=== PATIENT | male | born 1960 | race Caucasian/White ===

== ENCOUNTER 2017-01-08 22:09 | Inpatient (IN) | payer OTHER ==
[~2017-01-08] VITALS: Ht 175.3 cm; Wt 66.7 kg
[2017-01-08 22:33] VITALS: BP 103/71; PULSE 84; RESP 17; O2SAT 95
--- NOTE | 2017-01-08 23:22 | ED.REPORT ---
HPI-General Illness Date of Service Jan 08, 2017 ED Provider: Dr. Humble Womack The patient is a 56 year old male w/ a hx of hepatitis C and heroine use who presents to the ED c/o an abscess to his right upper thigh for the past 3 weeks. He denies fever. He has another abscess on his left triceps. Patient last used this morning. He expresses interest in getting clean. Nursing Notes Stated Complaint: ABSCESS ON RIGHT LEG Chief Complaint: Skin Rash/Abscess Nursing Notes Reviewed: Yes Allergies: Coded Allergies: Penicillins (Verified Allergy, Mild, RASH, 01/09/17) Sulfa (Sulfonamide Antibiotics) (Verified Allergy, Unknown, 01/09/17) No Active Prescriptions or Reported Meds General Time Seen by MD: 23:22 Chief Complaint Other (abscess) Hx Obtained From: Patient Arrived By: Walk-in Sudden in Onset?: Yes Onset Occurred: More than a week ago... (3 weeks) Symptom Duration: Since onset Location: : Thigh right Quality: Painful Severity: Current: Mild Recent Healthcare: No recent doctor visit, No recent hospitalization Similar Sx Previous: No Past Medical History Past Medical History Hepatitis C Heroin abuse Past Surgical History ACL repair of left knee Spine fusion T6-T12 Reports: Appendectomy Smoking History Current Every Day Smoker Social History Currently injecting 03/04/2015 Alcohol Use: Denies alcohol use Drug Use: Other Other Social History: Occupation single, has a home Ambulatory Status Independent Review of Systems Full Review of Systems Constitutional: Denies: Chills, Fever GI: Denies: Nausea, Vomiting Skin: Reports Swelling (abscess to right upper thigh) Complete sys rev & neg: except as marked. Physical Exam Vital Signs Vital Signs Date Time Temp Pulse Resp B/P Pulse Ox O2 Delivery O2 Flow Rate FiO2 01/09/17 02:58 77 16 102/60 96 Room Air 01/08/17 22:33 37.1 84 17 103/71 95 Room Air Initial VS: Reviewed General/Constitutional: Awake, Alert, No acute distress, Cooperative Head / Eyes: Atraumatic, Normocephalic, PERRL, EOMI Respiratory / Chest: Atraumatic, Breath sounds NL, Breath sounds = bilat, No respiratory distress Cardiovascular: Heart rate NL, Regular rhythm, Heart sounds NL, No gallop, No murmurs, No rubs Upper Extremities Left Shoulder: Positive: Swelling present... abscess over the left triceps Wrist / Hand: Atraumatic, Full range of motion, No deformity Right Thigh: Positive: Swelling present... large 15 by 10 area of fluctuance over interior lateral right thigh warm and tender non pointing inguinal adenopathy on right distal pulses intact some scarring anterior left thigh that is firm Ankle / Foot: Atraumatic, Full range of motion, No deformity Neurologic: Oriented X3, Speech NL, No motor deficits Interpretation & Diagnostics Interpretation & Diagnostics: CT femur 6.7x3.5x3cm fluid collection R Quadriceps muscle Lab Results Interpretation Result Diagram: 01/09/17 0133 01/09/17 0133 Test 01/09/17 01:33 01/09/17 01:41 White Blood Count 18.9th/mm3 (3.8-10.1) Red Blood Count 4.88mil/mm3 (4.40-5.80) Hemoglobin 12.6g/dL (13.8-17.2) Hematocrit 39.4% (41.0-50.0) Mean Corpuscular Volume 80.7fL (81-100) Mean Corpuscular Hemoglobin 25.8pg (27.0-35.0) Mean Corpuscular Hemoglobin Concent 32.0% (32.0-37.0) Red Cell Distribution Width 14.8% (12.3-15.4) Platelet Count 315bil/L (150-400) Neutrophils (%) (Auto) 81.1% (40-74) Lymphocytes (%) (Auto) 10.2% (14-46) Monocytes (%) (Auto) 7.6% (4-12) Eosinophils (%) (Auto) 0.7% (0-5) Basophils (%) (Auto) 0.2% (0-3) Sodium Level 130mEq/L (134-144) Potassium Level 4.4mEq/L (3.5-5.2) Chloride Level 92mEq/L (97-108) Carbon Dioxide Level 25mmol/L (18-29) Blood Urea Nitrogen 11mg/dL (6-24) Creatinine 0.66mg/dL (0.76-1.27) Estimat Glomerular Filtration Rate 132mL/min (>59) Glucose Level 97mg/dL (60-99) Calcium Level 8.7mg/dL (8.5-10.1) Total Bilirubin 0.6mg/dL (0.0-1.2) Aspartate Amino Transf (AST/SGOT) 102U/L (0-50) Alanine Aminotransferase (ALT/SGPT) 70U/L (0-44) Alkaline Phosphatase 104U/L (25-150) Total Protein 7.7g/dL (6.4-8.4) Albumin 3.5g/dL (3.4-5.0) Hold Cid Top Tube Received (Received) Procedures Procedure Notes: Ultrasound-guided intravenous line: I was asked to place an ultrasound-guided intravenous line into this IV drug abusing patient. A suitable antecubital vein was identified in the left before meals fossa, his dominant arm. This was entered in a single pass under direct visualization with a 20-gauge 1-1/4 inch IV. Flow and flush was obtained and IV was secured. He is returned to the care of his care team. Re-Eval/Medical Decision Med Decision/Clinical Course 56-year-old active injection drug user with a large abscess to his right thigh following intramuscular injection of heroin. There is a smaller abscess in the left triceps. He has a leukocytosis but appears nontoxic. Blood cultures have been obtained. Started on vancomycin and will consult general surgery and medicine Time of Eval: 01:01 Re-Evaluation/Progress Note: Difficulty getting an IV on the patient. Consultation #1: Referral / Consult Name: Jayy Rose MD Consulted With: Surgeon Drop Shipment Clerk: Will see patient Consultation #2: Referral / Consult Name: Bibi Banerjee DO Consulted With: Hospitalist Drop Shipment Clerk: Accepts admit Counseled Regarding: Diagnosis, Lab results, Need for admission Discharge & Departure Primary Impression: Abscess of right thigh Disposition: ADMITTED TO HOSPITAL Discharge Condition All VS Reviewed: Yes Condition: Stable Referrals: Gavin Sapp MD (PCP) Scribe Attestation Portion of this note were transcribed by Kristen Cohen. I, Dr. Womack, personally performed the history, physical exam, and medical decision-making: I reviewed and confirmed the accuracy for the information in the transcribed note. Signed by: janie Davis, 01/09/17 0200 copies to: Gavin Sapp MD, Donald L MD Jan 08, 2017 23:22 Kristen Cohen Jan 08, 2017 23:36 Eric Valentino MD Jan 09, 2017 01:31
[2017-01-09] VITALS (16 sets, daily range): BP systolic 99–153; BP diastolic 59–87; PULSE 69–81; RESP 13–28; O2SAT 94–99
[2017-01-09] MEDS ORDERED: HYDROmorphone 1 mg/mL Inj IM ONE (01:00)
[2017-01-09 01:45] LABS: BASOPHILS % (AUTO) 0.2 % (0-3); EOSINOPHILS % (AUTO) 0.7 % (0-5); MONOCYTES % (AUTO) 7.6 % (4-12); Mean Corpuscular Hemoglobin 25.8 pg (27.0-35.0); Mean Corpuscular Volume 80.7 fL (81-100); NEUTROPHILS % (AUTO) 81.1 % (40-74); Platelet Count 315 bil/L (150-400)
[2017-01-09] MEDS ORDERED: Vancomycin Inj 1,000 MG in IV Premix 1 EACH IV ONE (02:15)
[2017-01-09] MEDS: HYDROmorphone 1 mg/mL Inj IVPUSH PRN ×6 (02:58→20:18)
[2017-01-09] MEDS ORDERED: Lactated Ringer's 1,000 ML IV SCH ×2 (04:15→22:14)
[2017-01-09] MEDS ORDERED: Ondansetron 2 mg/mL 2 mL Inj IVPUSH PRN ×3 (04:15→22:15)
--- NOTE | 2017-01-09 04:59 | PCM.HPMED ---
Subjective Date of Service Jan 09, 2017 Primary Provider: Admitting Physician: Bibi Banerjee DO Primary Care Physician: Gavin Sapp MD Attending Physician: Bibi Banerjee DO Admit Status: From the Emergency Department Chief Complaint: leg pain History of Present Illness: 56yoM with past medical history of IVDU and hepatitis C admitted for surgical consultation and I&D of thigh abscess. 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 He has been unable to ambulate over the past two days due to pain. He denies fevers, chill, nausea and vomiting.\ CT completed in the ED with findings of fluid collection 6.7x3.5x3cm. Surgery was consulted and will see patient. Review of Systems: complete review of systems obtained. positive as per hpi otherwise negative Allergies Coded Allergies: Penicillins (Verified Allergy, Mild, RASH, 01/09/17) Sulfa (Sulfonamide Antibiotics) (Verified Allergy, Unknown, 01/09/17) Home Medications none PMH IVDU, heroin abscesses hepatitis C Surgical History ACL repair of left knee Spine fusion T6-T12 Appendectomy Social History Hx Alcohol Use: No Hx Substance Use: Yes (heroin) Hx Tobacco Use: No Smoking Status: Current Every Day Smoker Exam Vital Signs Vital Sign - Last Date Time Temp Pulse Resp B/P Pulse Ox O2 Delivery O2 Flow Rate FiO2 01/09/17 04:48 36.7 69 18 102/63 95 Room Air Exam General: alert and oriented, in no acute distress Eyes: PERRLA, Scleral Anicteric Mouth: Mouth Normal, Mucous Membranes Moist/[place] Neck: Supple, no Thyromegaly, trachea central. Chest & Lungs: CTA bilater, no rhonchi, wheezes or rales Cardiovascular: no MRG, Regular Rate/Rhythm Pulses: Radial (present and equal), Dorsalis Pedi (present and equal) Abdomen: Soft, Non-tender, Non-distended, Normoactive bowel tones. Musculoskeletal: Unremarkable. Normal range of motion, no swollen or erythematous joints Extremities: 0-1+ pitting edema of right lower extremity with right thigh abscess, no drainage or erythema no cyanosis, no clubbing. Skin: No rashes. Warm and dry Neurological: Grossly neurologically intact moving all extremities Lymphatic: Lymph nodes Cervical and Axillary not palpable. Psych: normal affect Lab and Diagnostics Result Diagram: 01/09/1713201/09/17132 X-Rays, CTs and MRIs Interpretation & Diagnostics: CT femur 6.7x3.5x3cm fluid collection R Quadriceps muscle Assessment & Plan 56yoM with past medical history of IVDU and hepatitis C admitted for surgical consultation and I&D of thigh abscess. Lower extremity abscess, acute, POA -secondary to IVDU -surgery consulted prior to admission, recs appreciated -NPO -mIVF -continue vancomycin pharmacy to dose -CT results reviewed and are as per documented above -pain management with IV hydromorphone until able to take PO Leukocytosis, acute, POA -secondary to abscess -does not meet Sepsis criteria -treatment as above Hyponatremia, acute, unknown chronicity -mild -likely hypovolemic given presentation -continue to monitor Opioid dependence, chronic, POA -monitor for withdrawal symptoms -clonidine PRN, lorazepam PRN, may consider methadone Tobacco dependence, chronic, POA -discussed smoking cessation -nicotine patch available upon request Elevated transaminase level, unknown chronicity, POA -likely secondary to hep C -continue to monitor -avoid hepatotoxic medications Pain Evaluation: Adequate Pain Control GI Prophylaxis: Not indicated VTE Prophylaxis: Sub-Q Heparin (Unfractionated) Resuscitation Status: CPR: Attempt Resuscitation Bibi Banerjee DO Jan 09, 2017 04:59
[2017-01-09] MEDS: Vancomycin Dose per Pharmacist XX SCH ×2 (05:05→08:30)
[2017-01-09] MEDS: Lactated Ringer's 1,000 ML IV SCH ×4 (05:09→21:47)
[2017-01-09] MEDS ORDERED: cloNIDine 0.1 mg Tablet PO PRN (05:10)
[2017-01-09] MEDS ORDERED: Polyethylene Glycol (PEG) 17 Gm Powder PO PRN (05:10)
[2017-01-09] MEDS ORDERED: Alum-Mag Hydrox-Simeth 30 mL Suspension PO PRN (05:10)
--- NOTE | 2017-01-09 05:54 | NUR ---
ADMITTED; to room 1029 at approx. 0430 via gurney with c/o painful upper reddened swollen right thigh. Dilaudid effective for pain. NPO. Belongings locked in closet. Sharps container removed. Pt is a current heroin user. Last used heroin yesterday a.m.
--- NOTE | 2017-01-09 06:43 | PCM.CONPHA ---
Subjective Date of Service: Jan 09, 2017 Requesting Provider: Bibi Banerjee DO leg pain History of Present Illness abscess on right thigh, secondary to IVDU Reason for Pharmacy Consult: Vancomycin Dosing Objective Assessment/Plan Assessment/Plan A/ - 56 y/o male patient admitted in for right thigh abscess secondary to heroin injection. Vancomycin ordered for empirical coverage - Afebrile, WBC: 18.9, blood cultures (x2) pending - I&D after surgical consult in am - In ED, clindamycin iv (PCN allergy) and Vancomycin 1G were given and to be continued - Wt: 66.7kg, ht: 175 cm, SCr: 0.66 mg/dL, estimated clearance ~ 117 ml/min, Vd ~47L, t1/2~7hrs, IVF@100ml/hr P/ - Give Vancomycin 1G iv q8hr. Trough level ordered before 4th dose @2130 . Pharmacy will follow and make necessary adjustment according to patient's clinical response and lab result Thank you for consulting clinical pharmacy in the care of this patient Ho Woody Jan 09, 2017 06:43
[2017-01-09] MEDS ORDERED: Ketamine 10 mg/mL 20 mL Inj ONE (06:47)
[2017-01-09] MEDS ORDERED: HYDROmorphone 2 mg/mL Inj ONE (06:47)
[2017-01-09] MEDS ORDERED: fentaNYL-PF 50 mCg/mL 2 mL Inj ONE (06:47)
[2017-01-09] MEDS ORDERED: Propofol 10,000 mCg/mL 20 mL Inj ONE (06:47)
[2017-01-09] MEDS ORDERED: Ondansetron 2 mg/mL 2 mL Inj ONE (06:47)
[2017-01-09] MEDS: Vancomycin Inj 1,000 MG in IV Premix 1 EACH IV SCH ×2 (08:26→16:18)
[2017-01-09] MEDS: Clindamycin Inj 600 MG in IV Premix 1 EACH IV SCH ×2 (08:27→18:03)
[2017-01-09] MEDS: Heparin 5,000 Unit/mL Inj SUBQ SCH ×2 (08:28→16:17)
--- NOTE | 2017-01-09 08:56 | DRSVH ---
PROCEDURE: CT FEMUR RIGHT WITH CONTRAST (47820) INDICATIONS: large abscess TECHNIQUE: After the administration of intravenous contrast, 3 mm axial sections acquired of the right femur, wi th coronal and sagittal reformats. For radiation dose reduction, the following was used: automated exposure control, adjustment of mA and/or kV according to patient size. COMPARISON: None. FINDINGS: Image quality: Excellent. Bones: No bony erosions or periosteal reaction demonstrated within the right femur. No fracture or s ubluxation. Soft tissues: There is a multilobulated thick walled peripherally enhancing collection within the mi d vastus lateralis muscle measuring approximately 4.2 x 3.5 x 9.9 cm consistent with an abscess. The re is subcutaneous fat stranding most prominent laterally in the thigh with mild hypoattenuation of t he vastus lateralis muscle and a small amount of fluid tracking deep to its superficial fascia consis tent with cellulitis and myositis as well as likely fasciitis. IMPRESSION: 1. Multiloculated intramuscular abscess demonstrated within the vastus lateralis. 2. Findings consistent with cellulitis of the lateral thigh as well as myositis of the vastus latera lis with edema tracking deep to its superficial fascia suggesting fasciitis. Dictated by: Kevin Whitney M.D. on 01/09/2017 at 8:43 Approved by: Kevin Whitney M.D. on 01/09/2017 at 8:48
[2017-01-09 12:09] LABS: APPEARANCE,URINE CLEAR (CLEAR,HAZY); COLOR,URINE YELLOW (YELLOW); OCCULT BLOOD,URINE NEGATIVE (NEGATIVE)
--- NOTE | 2017-01-09 14:45 | CONS ---
[address] [address] CONSULTATION REPORT PATIENT: HODAN GALAN : 1960 MR#: [id number] ADMIT: 01/09/2017 JOB ID: [id number] DATE OF SERVICE: CHIEF COMPLAINT/IDENTIFICATION: Asked to see this 56-year-old man who presents with right upper thigh abscess. He was admitted to the Medicine Service last night for planned consultation this morning and incision and drainage. PAST MEDICAL HISTORY: Hepatitis C, heroin use. Previous abscesses. Spine fusion, appendectomy. MEDICATIONS: Per med list. ALLERGIES: 1. PENICILLIN. 2. SULFA. SOCIAL HISTORY: Positive for tobacco, negative daily alcohol use. FAMILY HISTORY/REVIEW OF SYSTEMS: Per admission history and physical. PHYSICAL EXAMINATION: The patient is awake and alert. Afebrile. Blood pressure is recorded at 99/59, pulse is at 72. Directed examination shows an area of tender fluctuance on his right thigh consistent with a deep tissue abscess. He has a similar lesion on his left triceps. He also notes that his left thigh has a bump on it, but this is nontender and nonfluctuant. LABS: His white count was 18.9. His hematocrit was 39. Chemistries slightly abnormal, but fairly unremarkable. IMAGING: He had a lower extremity CT scan that demonstrates a multi-loculated, 4.2 x 3.5 x 9.9 cm intramuscular abscess in the mid vastus lateralis muscle. IMPRESSION/PLAN: Right thigh abscess. Possible left triceps abscess. I have recommended that we go to the operating room and drain the thigh abscess. While we are there, we will try to aspirate this lesion on his triceps, and if this is an abscess, will drain it as well. He would like to proceed today. He is n.p.o.
--- NOTE | 2017-01-09 16:09 | NUR ---
Social Work- Screening Data: EMR reviewed. Pt is a 56 year old male admitted 01/09/17 for right thigh abscess per H&P. Pt has a history of IV heroin use, last use day prior to admission. Pt's payor is [employer]. Pt's PCP is Gavin Sapp MD. Per chart review, pt resides in [place] where he is independent at baseline. Pt has been SBA in room. Surgery is following pt. Pt to OR today to receive I & D. SW acknowledges MD's order for CD assessment. In multi-disciplinary rounds MD requested HOSPITALIST PHYSICIAN follow up with pt regarding CD tomorrow after surgery when pt is appropriate. SW to follow up with pt to discuss discharge planning, CDP, and complete CD assessment. Pt anticipated to discharge home when medically ready, SW will continue to follow. Assessment: Pt who has a history of IVDU Plan: Pt to OR today for I & D. SW to follow up with pt tomorrow to discuss discharge planning, CDP, and complete CD assessment. Pt anticipated to discharge home when medically ready, SW will continue to follow. LUANNE Eric
--- NOTE | 2017-01-09 18:34 | NUR ---
Pain- Patient complaining of right thigh pain and burning. Thigh is red and inflamed. Dilaudid 1mg IV given per order, but does not totally take away all the discomfort. Patient has been NPO for surgery.
[2017-01-09] MEDS ORDERED: Vancomycin Serum Trough XX ONE (21:30)
[2017-01-09] MEDS ORDERED: Lactated Ringer's 500 ML IV PRN (22:14)
[2017-01-09] MEDS ORDERED: fentaNYL-PF 50 mCg/mL 2 mL Inj IVPUSH PRN (22:15)
[2017-01-09] MEDS ORDERED: MetoCLOpramide 5 mg/mL 2 mL Inj IVPUSH PRN (22:15)
[2017-01-09] MEDS ORDERED: Phenylephrine 10,000 mCg/mL Inj IVPUSH PRN (22:15)
[2017-01-09] MEDS ORDERED: Dexamethasone 4 mg/mL Inj IVPUSH PRN (22:15)
[2017-01-09] MEDS ORDERED: EPHEDrine Sulfate 50 mg/mL Inj IVPUSH PRN (22:15)
[2017-01-09] MEDS ORDERED: HYDROmorphone 1 mg/mL Inj IVPUSH PRN (22:15)
--- NOTE | 2017-01-09 22:15 | PCM.HPANE ---
Patient Data Date of Service: Jan 09, 2017 (7810) Surgeon Admitting Provider:Bibi Banerjee DO Attending Provider:Bibi Banerjee DO Primary Care Physician:Gavin Sapp MD Other Provider:Rachel Mathis Anesthesia Reason for Visit R Thigh Abscess Ht/WT & BMI Body Mass Index 21.78 Allergies Coded Allergies: Penicillins (Verified Allergy, Mild, RASH, 01/09/17) Sulfa (Sulfonamide Antibiotics) (Verified Allergy, Unknown, 01/09/17) Past Anesthesia History Anesthesia History: Denies:: Anesthesia Reactions Diabetes History Hx Diabetes?: No MRSA MRSA: No Medications No Active Prescriptions or Reported Meds History History of ENT Problems?: No HEENT History: Denies:: Abnormal Airway Cataracts Difficult Intubation Dysphagia Glaucoma Hearing Problem Sinus Problem TMJ Denture Type: None Teeth Condition: Tooth Decay Missing Teeth Other HEENT Pertinent History: above per "recall" Hx of Heart Problems?: No Cardiovascular History: Denies:: Congestive Heart Failure Hypertension Other Cardiac History: above per "recall" Hx of Respiratory Problem?: Yes Respiratory History: Positive for:: Pneumonia Denies:: Tuberculosis Other Resp Pertinent History: above per "recall" Hx Neurologic Problems?: Yes Neurological History: Positive for:: Seizures (medication related) Other Neurological Pertinent: above per "recall" Hx of GI Problems?: Yes Other GI Pertinent History: h/o hepatitis C and heroin use Hx of Problems?: Yes Genitourinary History: Positive for:: Urinary Tract Infection Male Hx: Denies:: Prostate Problems Hx Musculoskeletal Problems?: Yes Musculoskeletal History: Positive for:: Back Injury (back surgeries x 3 chronic pain) Hx of Psycho/Social Problems?: Yes Psycho Social History: Positive for:: Anxiety Hx Depression Other Psych Pertinent History: above per "recall" heroin use Hx Surgeries?: Yes Hx Any Other Health Problems?: Yes Other History: Positive for:: Hospitalization Denies:: Cancer Thyroid Disease History Blood Transfusions: Positive for:: Accept Blood Products? Denies:: Blood Transfusions Hx Diabetes: No Other Pertinent History: above per "recall" Hx Alcohol Use: NoHx Substance Use: Yes (used heroin yesterday a.m.) Smoking Status: Current Every Day Smoker Have You Smoked inLast 12 mo: Yes Stop/Bang Treated for Sleep Apnea?: No Do You Have a CPAP Machine?: No S-Snoring: Do You Snore Loudly: No T-Tired: feel tired, fatigued: No O-Obsered: Observed not breath: No P-Blood Pressure: treated: No B- Body Mass Index > 35 kg/m2: No A- Age over 50: Yes N- Neck Large Circumference: No G- Gender Male: Yes IZA Total Score: 1 Risk Assessment Category Category 1A: Patient has history of documented sleep apnea, and HAS NOT received any narcotic, sedative or anesthesia administration during this stay. Category 1B: Patient has history of documented sleep apnea, and HAS received any narcotic , sedative or anesthesia administration during this stay Category 2: Patient has SUSPECTED Obstructive Sleep Apnea, and HAS received any narcotic , sedative or anesthesia administration during this stay. Category 3: Patient has SUSPECTED Obstructive Sleep Apnea and HAS NOT received narcotic, sedative or anesthesia administration during this stay. Category 4: Outpatient in Procedural Areas with known sleep apnea or who screen positive for High Risk via the STOP/BANG questionnaire. Exam Exam Vital Signs Vital Signs Date Time Temp Pulse Resp B/P Pulse Ox O2 Delivery O2 Flow Rate FiO2 01/09/17 15:30 37.1 79 18 103/62 99 Room Air General Appearance: Alert, Oriented X3, Cooperative, No Acute Distress HEENT/AIRWAY: MP 2 Lungs: Clear to Auscultation Heart: Exam Unremarkable Meds/Labs/Diagnostics Admission Meds Current Medications Hydromorphone HCl 2 mg 2 mg ONCE ONCE IM Last administered on 01/09/17 01:16 ; Start 01/09/17 at 01:00; Stop 01/09/17 at 01:01; Status DC Vancomycin/0.9 % Sod Chloride 1000 mg/Premix 200 ml @ 133.333 mls/hr ONCE ONCE IV Last administered on 01/09/17 03:09; Start 01/09/17 at 02:15; Stop 06/17 at 03:44; Status DC Lactated Ringer's (Lr) 1,000 ml @ 100 mls/hr Q10H IV Last administered on 01/09 05:11; Start 01/09/17 at 04:15; Stop 01/09/17 at 05:53; Status DC Heparin Sodium (Porcine) 5000 unit 5,000 unit Q8 SUBQ Last administered on 01/09 16:17; Start 01/09/17 at 08:30 Lactated Ringer's 1,000 ml @ 100 mls/hr Q10H IV Last administered on 20:59; Start 01/09/17 at 05:09 Clindamycin Phosphate/ Dextrose 600 mg/ Premix 50 ml @ 100 mls/hr Q8 IV Last administered on 01/09/17 18:03; Start 01/09/17 at 08:30 Vancomycin/0.9 % Sod Chloride/ Premix (Vancomycin Inj/ IV Premix) 200 ml @ 133.333 mls/hr Q8H IV Last administered on 01/09/17 16:18; Start 01/09/17 at 08:00 Labs Test 01/09/17 01:33 01/09/17 01:41 01/09/17 09:12 White Blood Count 18.9th/mm3 (3.8-10.1) Red Blood Count 4.88mil/mm3 (4.40-5.80) Hemoglobin 12.6g/dL (13.8-17.2) Hematocrit 39.4% (41.0-50.0) Mean Corpuscular Volume 80.7fL (81-100) Mean Corpuscular Hemoglobin 25.8pg (27.0-35.0) Mean Corpuscular Hemoglobin Concent 32.0% (32.0-37.0) Red Cell Distribution Width 14.8% (12.3-15.4) Platelet Count 315bil/L (150-400) Neutrophils (%) (Auto) 81.1% (40-74) Lymphocytes (%) (Auto) 10.2% (14-46) Monocytes (%) (Auto) 7.6% (4-12) Eosinophils (%) (Auto) 0.7% (0-5) Basophils (%) (Auto) 0.2% (0-3) Sodium Level 130mEq/L (134-144) Potassium Level 4.4mEq/L (3.5-5.2) Chloride Level 92mEq/L (97-108) Carbon Dioxide Level 25mmol/L (18-29) Blood Urea Nitrogen 11mg/dL (6-24) Creatinine 0.66mg/dL (0.76-1.27) Estimat Glomerular Filtration Rate 132mL/min (>59) Glucose Level 97mg/dL (60-99) Calcium Level 8.7mg/dL (8.5-10.1) Total Bilirubin 0.6mg/dL (0.0-1.2) Aspartate Amino Transf (AST/SGOT) 102U/L (0-50) Alanine Aminotransferase (ALT/SGPT) 70U/L (0-44) Alkaline Phosphatase 104U/L (25-150) Total Protein 7.7g/dL (6.4-8.4) Albumin 3.5g/dL (3.4-5.0) Hold Cid Top Tube Received (Received) Urine Color Yellow (YELLOW) Urine Appearance Clear (CLEAR,HAZY) Urine pH 5.0 (5.0-8.0) Urine Specific [place] 1.010 (1.003-1.035) Urine Protein Negativemg/dL (NEG,TRACE) Urine Glucose (UA) Negativemg/dL (NEGATIVE) Urine Ketones Negativemg/dL (NEGATIVE) Urine Occult Blood Negative (NEGATIVE) Urine Nitrite Negative (NEGATIVE) Urine Bilirubin Negative (NEGATIVE) Urine Urobilinogen 2.0mg/dL (NORMAL) Urine Leukocyte Esterase Negative (NEGATIVE) Urine RBC 0-2/hpf (0-2) Urine WBC 0-5/hpf (0-5) Urine Epithelial Cells Occasional/hpf (NONE-MOD) Urine Crystals None seen (NONE SEEN) Urine Bacteria None/hpf (NONE-FEW) Urine Hyaline Casts None/lpf (NONE) Urine Granular Casts None seen (NONE SEEN) Urine Waxy Casts None seen (NONE SEEN) Urine Red Blood Cell Casts None seen (NONE SEEN) Urine White Blood Cell Casts None seen (NONE SEEN) Urine Mucus None seen (None Seen) Urine Trichomonas None seen (NONE SEEN) Urine Yeast None (NONE SEEN) Urinalysis Comment None Urine Culture Reflexed Not indicated Plan Impression Patient chart reviewed, patient interviewed and anesthestic plan with risks, benefits, and alternatives discussed, and informed consent obtained. ASA Physical Status: ASA3 Severe Disease Anesthetic Plan: GA Bene/Risks/Altern/Consents: Yes HP Complete Prior to Induction: Yes Rolando Camacho MD Jan 09, 2017 22:14
--- NOTE | 2017-01-09 22:51 | OP ---
[address] [address] OPERATIVE REPORT PATIENT: HODAN GALAN : 1960 MR#: [id number] ADMIT: 01/09/2017 JOB ID: [id number] DATE OF SURGERY: 01/09/2017 PREOPERATIVE DIAGNOSIS(ES): 1. Right thigh abscess. 2. Left arm abscess. POSTOPERATIVE DIAGNOSIS(ES): 1. Right thigh abscess. 2. Left arm abscess. PROCEDURE: 1. Incision and drainage of right thigh abscess. 2. Incision and drainage of left arm abscess. SURGEON: Jayy Rose MD INDICATIONS: A 56-year-old man with history of IV drug abuse who presents with multiple abscesses these. CAT scan had documented the one on his right thigh. Clinically, he has one on his left triceps area. He also is concerned about some induration on his left thigh. In the operating room, I have identified the right thigh and left arm abscess, but I can appreciate no fluctuance or cellulitis on the left thigh and I have left that alone. PROCEDURE IN DETAIL: The patient is brought to the operating room. General anesthetic with an LMA was administered. The procedure was performed on the patient's transfer gurney. The right thigh and left arm were prepped and draped in sterile fashion. Surgical time-out was performed. The patient was on therapeutic antibiotics. We began with the right thigh. Over the area of maximal fluctuance, I aspirated brown, chocolate-colored pus. This was sent for Gram stain and culture, labeled right thigh. I then made a longitudinal incision directly over the area of maximal fluctuance and entered a deep abscess in the vastus lateralis muscle including some necrotic muscle that was debrided. We extended the incision, so that the length of the cavity we irrigated out copiously. We obtained good hemostasis. All necrotic tissue was removed. We then packed the wound with saline soaked Kerlix and a dry dressing on top of that. I now turned my attention to the left arm. In the central area of thickness, I put in a needle and aspirated green pus. We made an incision along the longitudinal aspect of the arm and entered the abscess cavity that was between the subcutaneous tissues and the muscle. We opened up the cavity its entire length, washed it out, obtained hemostasis with cautery, and then packed it with normal saline-soaked Kerlix and a dry dressing. The patient tolerated the procedure well. At the time of dictation, he is in the recovery room. The two cultures were sent separately as they had clinically quite a different appearance.
[2017-01-10] MEDS: HYDROmorphone 1 mg/mL Inj IVPUSH PRN ×3 (00:21→09:35)
[2017-01-10] MEDS: Vancomycin Inj 1,000 MG in IV Premix 1 EACH IV SCH ×2 (00:27→09:32)
[2017-01-10] MEDS: Heparin 5,000 Unit/mL Inj SUBQ SCH ×3 (00:35→11:15)
[2017-01-10] MEDS: Lactated Ringer's 1,000 ML IV SCH ×2 (01:09→11:09)
[2017-01-10] MEDS: Clindamycin Inj 600 MG in IV Premix 1 EACH IV SCH ×3 (02:08→11:15)
--- NOTE | 2017-01-10 05:51 | NUR ---
Left to OR/ Return/ Pain Patient left to OR at approx 2140. Was SL and chart left with patient. Patient returned at approx 2300. Is alert and complains of lower back pain and right thigh pain. Chart returned with patient. Dressing on right thigh and left arm are both intact with sanguinous drainage present. Has complained of 6-9/10 pain this shift. Pain and anxiety/agitation has been managed with 1mg Dilaudid IVP and 1mg Ativan IVP this evening. Fluids restarted, LR is running at 100cc/hr. Will continue to monitor and continue Q1 hour checks.
[2017-01-10 06:20] VITALS: BP 127/72; PULSE 70; RESP 16; O2SAT 95
[2017-01-10] MEDS: Vancomycin Dose per Pharmacist XX SCH (08:30)
--- NOTE | 2017-01-10 09:22 | PCM.PNSURG ---
Subjective Date of Service: Jan 10, 2017 Date of Service: Jan 10, 2017 Visit Information: Reason for Visit R Thigh Abscess Surgery/Surgery Date I&D of right thigh abscess and left arm abscess Jan 09, 2017 Post-Op Day # 1 Date of Admission: Jan 09, 2017 at 03:42 Hospital Day # 2 Subjective: Patient is feeling better this morning still with pain of his right thigh and left arm. He is tolerating food well, no nausea or vomiting. No fever or chills. Postop General: No Shortness of Breath, No Chest Pain Gastrointestinal: Good Appetite, Tolerating Oral Feedings, No N/V Pain Management: IV Push Objective Vital Sign- Last 8 Hours Date Time Temp Pulse Resp B/P Pulse Ox O2 Delivery O2 Flow Rate FiO2 01/10/17 06:20 37.1 70 16 127/72 95 Room Air Intake and Output- Last 8 Hour 01/10/17 Cumulative From/Thru 07:00 01/08/17 22:33 - 01/10/17 06:41 Intake Total 965 ml 2301 ml Output Total 1000 ml Balance 965 ml 1301 ml Intake Oral 0 ml IV Total 965 ml 2301 ml Output Urine Total 1000 ml General: Alert, Oriented X3, Cooperative, No Acute Distress Neck: Supple Lungs: Clear to Auscultation Heart: Regular Rate/Rhythm Abdomen: Benign, Soft SURGICAL WOUND : Wound Location/Description Right thigh and left arm surgical wounds. Wound General Appearence: Open, Wound under dressing Dressing & Drainage Status: Intact, Serosanguineous Drainage, No Odor Extremities: Distal Pulses Palpable, Warm, Other (Left thigh examined, no area or erythema or fluctuance. ) Neuro: Grossly Neurologically Intact Catheters: None Result Diagram: 01/09/17 0133 01/09/17 013 Lab & Micro Results: Blood cultures show no growth at 24 hours Abscess cultures pending x2 Assessment & Plan Impression 56 yo IV drug user with Hepatitis C post op day 1 from I&D x2 on right thigh and left arm. Patient is doing well post op. He has had this procedure done before and feels confident in his ability to follow up in the wound center. Problems: Plan 1. Wound care consultation and outpatient follow-up 2. Pain control per hospitalist. 3. Recommend infectious disease consult for antibiotic treatment and follow-up. Thank you for this interesting consult. Pain Management: Per hospitalist team VTE Prophylaxis: Sub-Q Heparin (Unfractionated) Resuscitation Status: CPR: Attempt Resuscitation Attending Statement: I agree with Dr. Lewis's assessment and plan. copies to: Jayy Rose MD; Walter Swanson MD, Erika R DO Jan 10, 2017 09:22 Walter Swanson MD Jan 14, 2017 13:45
--- NOTE | 2017-01-10 10:45 | NUR ---
Wound Care Patient seen at bedside for wound care, 56 yo male s/p I&D of left triceps and right thigh abscesses. Patient reports abscesses secondary to intramuscular heroin injections. Right thigh abscess is 9 cm x 3 cm x 3.5 cm, clean and draining serosanquinous drainage, cleaned with saline,repacked with gauze and covered with abd pad, kerlix wrapped and surgilast. Left triceps abscess is 5 cm x 1.5 cm x1.5 cms,clean and draining serosanquinous drainage, cleaned with saline,repacked with gauze and covered with abd pad, kerlix wrapped and surgilast. Wounds do not appear infected at this time. Will recheck on patient in am for reassessment.
[2017-01-10] MEDS ORDERED: oxyCODONE-Acetamin 5-325 mg Tablet PO PRN (12:20)
--- NOTE | 2017-01-10 13:09 | NUR ---
AMA Pt found in the [place] on his way outside having disconnected his own IV, stopped by RN and asked where he was going with a response of "to meet a friend in the parking lot. I'll be right back." Wound care had recently finished a dressing change, IV Ativan given for procedure as it was too soon for IV Dilaudid. MD paged as pain management ineffective per pt, PO options given and IV doses DC'd. Pt states "I'll manage my own pain". Discussion around infection/sepsis/wound care and pt plans to see WC tomorrow and if need be "I'll just go back to the ER". Kpad given for back pain and prior to dressing change pt had been somnolent and not complaining of pain. Pt signed AMA paperwork understanding his risks. Half of his Clindamycin dose was not administered. Full Vanco dose given this morning.
--- NOTE | 2017-01-11 15:04 | PCM.DC.MED ---
Discharge Summary Date of Service Jan 10, 2017 Dates of Hospitalization Date of Hospital Admission Jan 09, 2017 at 03:42 Date of Discharge: Jan 10, 2017 Providers: Admitting Physician: Bibi Banerjee DO Primary Care Physician: Gavin Sapp MD Attending Physician: Bibi Banerjee DO Diagnosis at Time of Discharge Diagnosis at Time of Discharge Multiple abscesses secondary to IM drug abuse Polysubstance abuse Consultations Infectious disease Surgery Procedures XRay, CTs & MRIs Interpretation & Diagnostics: CT femur 6.7x3.5x3cm fluid collection R Quadriceps muscle Brief History History of present illness obtained by 56yoM with past medical history of IVDU and hepatitis C admitted for surgical consultation and I&D of thigh abscess. Patient is a [facility] heroin user (last use day prior to admit) who injected into his right thigh muscle with subsequent development of pain and edema. He has been unable to ambulate over the past two days due to pain. He denies fevers, chill, nausea and vomiting.\ CT completed in the ED with findings of fluid collection 6.7x3.5x3cm. Surgery was consulted and will see patient. Hospital Course 56yoM with past medical history of IVDU and hepatitis C admitted for surgical consultation and I&D of thigh abscess. On January 11, patient left hospital AGAINST MEDICAL ADVICE. During the hospital course, patient was consulted by surgery, underwent I&D of right thigh and left arm, which thought to be related to IM heroine abuse. While awaiting for culture results and on IV antibiotics with clindamycin and vancomycin. Patient refused to stay, left hospital. Lower extremity abscess, acute, POA. secondary to IVDU, surgery was consulted, -NPO -mIVF -continue vancomycin pharmacy to dose -CT results reviewed and are as per documented above -pain management with IV hydromorphone until able to take PO Leukocytosis, acute, POA -secondary to abscess -does not meet Sepsis criteria -treatment as above Hyponatremia, acute, unknown chronicity -mild -likely hypovolemic given presentation -continue to monitor Opioid dependence, chronic, POA -monitor for withdrawal symptoms -clonidine PRN, lorazepam PRN, may consider methadone Tobacco dependence, chronic, POA -discussed smoking cessation -nicotine patch available upon request Elevated transaminase level, unknown chronicity, POA -likely secondary to hep C -continue to monitor -avoid hepatotoxic medications Exam Vital Signs (Last) Date Time Temp Pulse Resp B/P Pulse Ox O2 Delivery O2 Flow Rate FiO2 01/10/17 06:20 37.1 70 16 127/72 95 Room Air 01/09/17 22:28 10 Exam Patient was not cooperative for examination Test 01/09/17 01:33 01/09/17 01:41 01/09/17 09:12 01/09/17 23:35 White Blood Count 18.9th/mm3 (3.8-10.1) Red Blood Count 4.88mil/mm3 (4.40-5.80) Hemoglobin 12.6g/dL (13.8-17.2) Hematocrit 39.4% (41.0-50.0) Mean Corpuscular Volume 80.7fL (81-100) Mean Corpuscular Hemoglobin 25.8pg (27.0-35.0) Mean Corpuscular Hemoglobin Concent 32.0% (32.0-37.0) Red Cell Distribution Width 14.8% (12.3-15.4) Platelet Count 315bil/L (150-400) Neutrophils (%) (Auto) 81.1% (40-74) Lymphocytes (%) (Auto) 10.2% (14-46) Monocytes (%) (Auto) 7.6% (4-12) Eosinophils (%) (Auto) 0.7% (0-5) Basophils (%) (Auto) 0.2% (0-3) Sodium Level 130mEq/L (134-144) Potassium Level 4.4mEq/L (3.5-5.2) Chloride Level 92mEq/L (97-108) Carbon Dioxide Level 25mmol/L (18-29) Blood Urea Nitrogen 11mg/dL (6-24) Creatinine 0.66mg/dL (0.76-1.27) Estimat Glomerular Filtration Rate 132mL/min (>59) Glucose Level 97mg/dL (60-99) Calcium Level 8.7mg/dL (8.5-10.1) Total Bilirubin 0.6mg/dL (0.0-1.2) Aspartate Amino Transf (AST/SGOT) 102U/L (0-50) Alanine Aminotransferase (ALT/SGPT) 70U/L (0-44) Alkaline Phosphatase 104U/L (25-150) Total Protein 7.7g/dL (6.4-8.4) Albumin 3.5g/dL (3.4-5.0) Hold Cid Top Tube Received (Received) Urine Color Yellow (YELLOW) Urine Appearance Clear (CLEAR,HAZY) Urine pH 5.0 (5.0-8.0) Urine Specific [place] 1.010 (1.003-1.035) Urine Protein Negativemg/dL (NEG,TRACE) Urine Glucose (UA) Negativemg/dL (NEGATIVE) Urine Ketones Negativemg/dL (NEGATIVE) Urine Occult Blood Negative (NEGATIVE) Urine Nitrite Negative (NEGATIVE) Urine Bilirubin Negative (NEGATIVE) Urine Urobilinogen 2.0mg/dL (NORMAL) Urine Leukocyte Esterase Negative (NEGATIVE) Urine RBC 0-2/hpf (0-2) Urine WBC 0-5/hpf (0-5) Urine Epithelial Cells Occasional/hpf (NONE-MOD) Urine Crystals None seen (NONE SEEN) Urine Bacteria None/hpf (NONE-FEW) Urine Hyaline Casts None/lpf (NONE) Urine Granular Casts None seen (NONE SEEN) Urine Waxy Casts None seen (NONE SEEN) Urine Red Blood Cell Casts None seen (NONE SEEN) Urine White Blood Cell Casts None seen (NONE SEEN) Urine Mucus None seen (None Seen) Urine Trichomonas None seen (NONE SEEN) Urine Yeast None (NONE SEEN) Urinalysis Comment None Urine Culture Reflexed Not indicated Vancomycin Level Trough 13.2mcg/mL Discharge Medications No Active Prescriptions or Reported Meds Followup Plan Disposition: Patient left AGAINST MEDICAL ADVICE Time spent 65 minutes Cipriano Reilly MD Jan 10, 2017 14:35
== END 2017-01-10 12:15 | disposition left against medical advice (07) | DRG 580 ==
LOC: SED 22:09 → OBSVTOIN 01-09 03:42 → OSC 01-09 03:42
PROVIDERS: ADMIT Internal Medicine; ATTEND Internal Medicine
PROC: 0X9 Anatomical Regions, Upper Extremities, Drainage (ICD-10-PCS; 2017-01-09)
PROC: 0K9Q0ZX Drainage of Right Upper Leg Muscle, Open Approach, Diagnostic (ICD-10-PCS; principal; 2017-01-09 17:30)
DX: L02.415 Cutaneous abscess of right lower limb (principal); F11.20 Opioid dependence, uncomplicated; L03.114 Cellulitis of left upper limb; F17.200 Nicotine dependence, unspecified, uncomplicated; Z86.19 Personal history of other infectious and parasitic diseases

== ENCOUNTER 2017-02-12 20:18 | Inpatient (IN) | payer OTHER ==
[~2017-02-12] VITALS: Ht 175.3 cm; Wt 68.2 kg
[2017-02-12 20:20] VITALS: BP 115/73; PULSE 124; RESP 15; O2SAT 99
[2017-02-12 22:25] VITALS: BP 103/68; PULSE 95; RESP 20; O2SAT 95
--- NOTE | 2017-02-12 22:39 | ED.REPORT ---
HPI-Rash / Abscess Date of Service Feb 12, 2017 ED Provider: Geovanny Singletary MD The pt is 57 y/o male w/ a hx of polysubstance abuse, abscesses, and hepatitis C presenting to the ED complaining of abscesses to his L shoulder and R upper buttock. He has been using black tar heroin and is smoking meth. He last used at 1500 but reports using "only a small amount to avoid getting sick". He had a surgery for an abscess on his R thigh 3 weeks ago . Nursing Notes Stated Complaint: ABCSESS Chief Complaint: Skin Rash/Abscess Nursing Notes Reviewed: Yes Allergies: Coded Allergies: Penicillins (Verified Allergy, Mild, RASH, 02/12/17) Sulfa (Sulfonamide Antibiotics) (Verified Allergy, Unknown, 02/12/17) No Active Prescriptions or Reported Meds General Time Seen by MD: 22:24 Chief Complaint Abscess (L shoulder and R upper buttock ) Hx Obtained From: Patient, Other family... (Mother) Arrived By: Walk-in Onset Occurred: Just prior to arrival Symptom Duration: Since onset Recent Healthcare: Recent doctor visit, Recent hospitalization Similar Sx Previous: Yes Past Medical History Past Medical History Hepatitis C Heroin abuse Past Surgical History ACL repair of left knee Spine fusion T6-T12 Reports: Appendectomy Smoking History Current Every Day Smoker Social History Currently injecting 03/04/2015 Alcohol Use: Denies alcohol use Drug Use: Other Other Social History: Occupation single, has a home Ambulatory Status Independent Review of Systems Abscesses to L shoulder and R upper buttock Scar from abscess removal procedure on R anterior thigh Constitutional: Denies: Chills, Fever Complete sys rev & neg: except as marked. Physical Exam Initial Vital Signs Vital Signs (First) Date Time Temp Pulse Resp B/P Pulse Ox O2 Delivery O2 Flow Rate FiO2 02/12/17 20:20 37.7 124 15 115/73 99 Room Air Initial VS: Reviewed Head / Eyes: Atraumatic, Normocephalic ENT: Mucous membranes moist, Conjunctiva normal Neck: Supple, Non-tender, Full range of motion Respiratory: Breath sounds normal, Clear to auscultation, No respiratory distress Cardiovascular: Regular rate & rhythm, Heart sounds normal, Intact distal pulses Abdomen / GI: Soft, Non-tender Extremities: Vascular intact, Neuro intact, No swelling, No tenderness Neurologic: Alert, Oriented, Nonfocal Psychiatric: Mood/affect normal, Behavior normal, Normal thought content General/Constitutional: Awake, Alert Skin: Color NL, No rash, Warm, Dry, Intact Abscess over L deltoid w/ erythematous area w/ soft fluctuant center R buttock has a large scarred area w/ erythema, swelling and tenderness w/ a central fluctuant area L buttock tender w/o erythema and w/o palpable abscess Interpretation & Diagnostics Lab Results Interpretation Result Diagram: 02/13/17 0810 02/13/17 0810 Lab Results Interpretation: Elevated white blood count CT Abd / Pelvis Interpretation Conclusion: Large bilateral deep subcutaneous gluteal abscess collections. Adjacent inflammatory changes. Reactive lymphadenopathy. Small abscess of the anterior right pelvic wall suspected. Other findigns as noted above. This report was transmitted to the emergency room at 02/13/17 - 128:18 AM PDT. Study type: Abdominal CT no contrast Interpretation / Wet Read by: Interpret - Radiologist Re-Eval/Medical Decision Med Decision/Clinical Course 57-year-old male who presents with recurrent abscesses. He continues to muscle by black tar heroin. He is found to have deep subcutaneous abscesses of bilateral buttocks and his left deltoid area. He will be admitted to the hospital for surgical I&D. His previous abscess was culture positive for MRSA. He was given a single dose of vancomycin here in the emergency room. Source of Hx: Old records Re-Evaluation/Progress : Time of Eval: 02:45 Re-Evaluation/Progress Note: Pt rechecked. Informed pt of need for admission. Pt understands and agrees with plan for admission. All questions addressed. Consultation : Referral / Consult Name: Sloane Templeton MD Consulted With: Hospitalist Call Returned at: 02:50 Gravity Manager: Will see patient, Agrees with eval, Agrees with plan, Accepts admit Counseled Regarding: Diagnosis, Lab results, Need for admission Discharge & Departure Impression: Primary Impression: Abscess of multiple sites of buttock Additional Impressions: IVDU (intravenous drug user) Abscess of left shoulder Disposition: ADMITTED TO HOSPITAL Discharge Condition All VS Reviewed: Yes Condition: Stable Referrals: Gavin Sapp MD (PCP) Scribe Attestation Portions of this note were transcribed by Hany Clayton. I, Dr. Singletary personally performed the history, physical exam and medical decision-making; I reviewed and confirmed the accuracy of the information in the transcribed note. Signed by : Velvet Moctezuma, 02/12/17 and 2300. copies to: Gavin Sapp MD, Howard L MD Feb 12, 2017 22:39 Hany Clayton Feb 12, 2017 23:04 Potassium Level 4.0mEq/L (3.5-5.2) Chloride Level 93mEq/L (97-108) Carbon Dioxide Level 23mmol/L (18-29) Blood Urea Nitrogen 13mg/dL (6-24) Creatinine 0.62mg/dL (0.76-1.27) Estimat Glomerular Filtration Rate 142mL/min (>59) Glucose Level 106mg/dL (60-99) Lactic Acid Level 1.1mmol/L (0.4-2.0) Calcium Level 8.3mg/dL (8.5-10.1) Magnesium Level 1.8mg/dL (1.6-2.6) Total Bilirubin 0.4mg/dL (0.0-1.2) Aspartate Amino Transf (AST/SGOT) 27U/L (0-50) Alanine Aminotransferase (ALT/SGPT) 26U/L (0-44) Alkaline Phosphatase 104U/L (25-150) Total Protein 6.9g/dL (6.4-8.4) Albumin 2.9g/dL (3.4-5.0) CT Abd / Pelvis Interpretation Conclusion: Large bilateral deep subcutaneous gluteal abscess collections. Adjacent inflammatory changes. Reactive lymphadenopathy. Small abscess of the anterior right pelvic wall suspected. Other findigns as noted above. This report was transmitted to the emergency room at 02/13/17 - 128:18 AM PDT. Study type: Abdominal CT no contrast Interpretation / Wet Read by: Interpret - Radiologist Re-Eval/Medical Decision Source of Hx: Old records Re-Evaluation/Progress : Time of Eval: 02:45 Re-Evaluation/Progress Note: Pt rechecked. Informed pt of need for admission. Pt understands and agrees with plan for admission. All questions addressed. Consultation : Referral / Consult Name: Sloane Templeton MD Consulted With: Hospitalist Call Returned at: 02:50 Gravity Manager: Will see patient, Agrees with eval, Agrees with plan, Accepts admit Counseled Regarding: Diagnosis, Lab results, Need for admission Discharge & Departure Impression: Primary Impression: IVDU (intravenous drug user) Additional Impressions: Abscess of left shoulder Abscess of multiple sites of buttock Disposition: ADMITTED TO HOSPITAL Discharge Condition All VS Reviewed: Yes Condition: Stable Referrals: Gavin Sapp MD (PCP) Velvet Attestation Portions of this note were transcribed by Hany Clayton. I, Dr. Singletary personally performed the history, physical exam and medical decision-making; I reviewed and confirmed the accuracy of the information in the transcribed note. Signed by : Velvet Moctezuma, 02/12/17 and 2300. copies to: Gavin Sapp MD, Howard L MD Feb 12, 2017 22:39 Hany Clayton Feb 12, 2017 23:04
[2017-02-12] MEDS ORDERED: 0.9% Sodium Chloride 1,000 ML IV ONE (22:45)
[2017-02-13] VITALS (10 sets, daily range): BP systolic 103–132; BP diastolic 58–92; PULSE 65–99; RESP 16–18; O2SAT 94–99
[2017-02-13 00:08] LABS: BASOPHILS % (AUTO) 0.1 % (0-3); EOSINOPHILS % (AUTO) 0.5 % (0-5); MONOCYTES % (AUTO) 8.5 % (4-12); Mean Corpuscular Hemoglobin 25.5 pg (27.0-35.0); Mean Corpuscular Volume 77.8 fL (81-100); NEUTROPHILS % (AUTO) 79.8 % (40-74); Platelet Count 369 bil/L (150-400)
[2017-02-13] MEDS: HYDROmorphone 1 mg/mL Inj IVPUSH PRN ×11 (00:19→23:56)
[2017-02-13 00:34] LABS: Magnesium 1.8 mg/dL (1.6-2.6)
[2017-02-13] MEDS ORDERED: Vancomycin Dose per Pharmacist XX ONE (02:26)
[2017-02-13] MEDS ORDERED: Vancomycin Inj 1,500 MG in 0.9% Sodium Chloride 500 ML IV ONE (02:30)
--- NOTE | 2017-02-13 02:50 | PCM.CONSUR ---
Subjective Date of Service: Feb 13, 2017 History of Present Illness Mr. Dumont is a 57 year old male with history of IV and IM heroin use who presents with bilateral buttock abscesses and a developing left shoulder abscess. The patient reports he injected intramuscularly into these 3 sites within the last 2 weeks and noticed pain starting approximately 5 days ago. The pain has progressively worsened, in association with swelling, erythema, tenderness, and firmness to the touch. Right buttock is worse than the left buttock is worse than the left shoulder. No spontaneous drainage. Yesterday and today he has felt "ill and fatigued," though cannot offer specific symptoms , which is what prompted his presentation to the ED. He denies fevers, chills, abdominal pain, nausea or vomiting. Of note, he last used heroin 1.5 days ago. He was beginning to withdraw and having some diarrhea which is why he used. He tells me he is actively attempting to quit. Mr. Dumont has had numerous I&Ds of heroin associated abscesses. Most recently, on January 09, he underwent I&D of an anterior right thigh abscess and a left arm abscess (distal to the current location). Abscess cultures grew MRSA. He left AMA on January 11 but continued with home wound care and these sites have healed well. Other than the 3 locations of pain tonight, he denies having any other areas concerning for developing abscess. Allergy Allergies: Coded Allergies: Penicillins (Verified Allergy, Mild, RASH, 02/12/17) Sulfa (Sulfonamide Antibiotics) (Verified Allergy, Unknown, 02/12/17) Medications No Active Prescriptions or Reported Meds Past Surgical History Surgeries: Yes (Appendectomy, spinal fusion, numerous I&Ds) Patient/Family Past Surgical: Denies:: Anesthesia Reactions, Blood Transfusions Social History Occupation: Does not work Hx Alcohol Use: No Hx Substance Use: Yes (used heroin yesterday a.m.) Hx Tobacco Use: Yes PMH HEENT History History of ENT Problems?: No HEENT History: Denies:: Abnormal Airway Cataracts Difficult Intubation Dysphagia Hearing Problem Sinus Problem TMJ Cardiovascular History History of Heart Problems?: No Cardiovascular History: Denies:: Congestive Heart Failure Hypertension Respiratory History of Respiratory Problem: Yes Respiratory History: Positive for:: Pneumonia Denies:: Tuberculosis Neurological History Hx Neurologic Problems?: Yes Neurological History: Positive for:: Seizures (medication related) Gastrointestinal History HX of GI Problems?: Yes Other GI Pertinent History: Hepatitis C Genitourinary History Hx of Gu Problems?: Yes Genitourinary History: Positive for: Urinary Tract Infection Female/Male History Reproductive History Male: Denies: Prostate Problems Musculoskeletal History Hx Musculoskeletal Problems?: Yes Musculoskeletal History: Positive for:: Back Injury (back surgeries x 3 chronic pain) Psycho Social History Hx of Psycho/Social Problems?: Yes Psycho Social History: Positive for:: Anxiety Hx Depression Other History Hx Any Other Health Problems?: Yes Other History: Positive for:: Hospitalization Denies:: Cancer Thyroid Disease Diabetes: No Social History Hx Alcohol Use: NoHx Substance Use: Yes (used heroin yesterday a.m.)Hx Tobacco Use: Yes Smoking Status: Current Every Day Smoker Living Arrangement: with Friends/Roommate (Lives in [place].) Objective Exam Vital Signs & I/O Vital Sign- Last 8 Hours Date Time Temp Pulse Resp B/P Pulse Ox O2 Delivery O2 Flow Rate FiO2 02/13/17 02:15 37.2 99 18 111/72 97 Room Air 02/12/17 22:25 37.4 95 20 103/68 95 Room Air 02/12/17 20:20 37.7 124 15 115/73 99 Room Air Intake and Output- Last 8 Hour 02/13/17 Cumulative From/Thru 07:00 02/12/17 20:20 - 02/13/17 00:20 Intake Total 1000 ml 1000 ml Balance 1000 ml 1000 ml Intake IV Total 1000 ml 1000 ml Lab & Micro Results Laboratory Tests Test 02/12/17 23:50 White Blood Count 23.0th/mm3 (3.8-10.1) Red Blood Count 4.63mil/mm3 (4.40-5.80) Hemoglobin 11.8g/dL (13.8-17.2) Hematocrit 36.0% (41.0-50.0) Mean Corpuscular Volume 77.8fL (81-100) Mean Corpuscular Hemoglobin 25.5pg (27.0-35.0) Mean Corpuscular Hemoglobin Concent 32.8% (32.0-37.0) Red Cell Distribution Width 15.0% (12.3-15.4) Platelet Count 369bil/L (150-400) Neutrophils (%) (Auto) 79.8% (40-74) Lymphocytes (%) (Auto) 10.7% (14-46) Monocytes (%) (Auto) 8.5% (4-12) Eosinophils (%) (Auto) 0.5% (0-5) Basophils (%) (Auto) 0.1% (0-3) Sodium Level 132mEq/L (134-144) Potassium Level 4.0mEq/L (3.5-5.2) Chloride Level 93mEq/L (97-108) Carbon Dioxide Level 23mmol/L (18-29) Blood Urea Nitrogen 13mg/dL (6-24) Creatinine 0.62mg/dL (0.76-1.27) Estimat Glomerular Filtration Rate 142mL/min (>59) Glucose Level 106mg/dL (60-99) Lactic Acid Level 1.1mmol/L (0.4-2.0) Calcium Level 8.3mg/dL (8.5-10.1) Magnesium Level 1.8mg/dL (1.6-2.6) Total Bilirubin 0.4mg/dL (0.0-1.2) Aspartate Amino Transf (AST/SGOT) 27U/L (0-50) Alanine Aminotransferase (ALT/SGPT) 26U/L (0-44) Alkaline Phosphatase 104U/L (25-150) Total Protein 6.9g/dL (6.4-8.4) Albumin 2.9g/dL (3.4-5.0) Result Diagram: 02/12/17 2350 02/12/17 2350 Review of Systems: Except as noted in the HPI, a comprehensive review of systems was obtained at the bedside and is otherwise negative. H&P Surgical Exam Exam General: Alert, Oriented X3, Cooperative HEENT: Other (Poor dentition, moist mucous membranes. No scleral icterus. ) Neck: Within normal limits & unremarkable Respiratory: Clear to Auscultation Cardiac: Other (Tachycardic. ) Abdomen: Soft, No tenderness, No masses Musculoskeletal: Swelling, erythema, induration, and exquisite tenderness to palpation of the left lateral upper arm overlying the triceps, and over the bilateral gluteus muscles. Visualization of the buttock lesions is limited secondary to patient' s inability to position himself due to pain. Additional Information CT of the pelvis is personally reviewed and reveals approximately 8x3 cm abscess overlying the right gluteus and a 5x3 cm abscess overlying the left gluteus muscle. Assessment & Plan Assessment 57 year old male who uses black tar heroin and has developed bilateral gluteal abscess in addition to a developing left tricep abscess. He has a history of MRSA and hepatitis C. WBC today is 23K. He will be best served having these drained in the operating room. Plan: - Appreciate medicine consult for guidance of IV antibiosis, fluid resuscitation , and discharge planning (patient has expressed desire for methadone clinic referral). - He should remain NPO in anticipation of drainage in the OR later this morning. - Will need wound consult following OR - Surgery will continue to follow - Please do not hesitate to call with questions or concerns. Case discussed with Dr. Adryan Hannah, the meat boner general surgeon. Attending Statement: I have seen and examined the patient, and agree with Dr. Harvey' assesment and plan above. I do think the left arm abscess warrants drainage as well as the bilateral buttock sites. Informed consent was obtained. Donny Harvey MD Feb 13, 2017 02:50 Adryan Hannah MD Feb 13, 2017 09:07
[2017-02-13] MEDS ORDERED: Polyethylene Glycol (PEG) 17 Gm Powder PO PRN (03:50)
[2017-02-13] MEDS ORDERED: Ondansetron 2 mg/mL 2 mL Inj IVPUSH PRN ×2 (03:50→11:10)
[2017-02-13] MEDS ORDERED: Alum-Mag Hydrox-Simeth 30 mL Suspension PO PRN (03:50)
[2017-02-13] MEDS ORDERED: 0.9% Sodium Chloride 250 ML ONE (04:43)
--- NOTE | 2017-02-13 05:15 | PCM.HPMED ---
Subjective Date of Service Feb 13, 2017 Primary Provider: Admitting Physician: Sloane Templeton MD Primary Care Physician: Gavin Sapp MD Attending Physician: Sloane Templeton MD Admit Status: From the Emergency Department Chief Complaint: Skin abscesses History of Present Illness: Mr. Perez is a 57-year-old male with past medical history polysubstance abuse , skin abscesses, hepatitis C who presents to the ED secondary to abscesses in his left shoulder and bilateral buttocks. He is a habitual user of black tar heroin through both the IM and IV routes. He has injected into his currently infected sites approximately 3 times within the last 2 weeks, last used yesterday at approximately 1500. He reports progressive pain in these areas starting approximately 5 days ago, with accompanying erythema, tenderness to palpation. He has previous history abscesses requiring incision and drainage, most recently January 09 to his right thigh which was MRSA positive. He left AMA on January 11 but reportedly continued with home wound care. He does not report any drainage from these areas also denies fevers/chills, nausea/vomiting, chest pain, shortness of breath or abdominal pain. In the ED white count found to be 23,000 with 80% neutrophils, sodium 132, lactic acid 1.1. CT showed large bilateral deep gluteal subcutaneous abscesses , and small abscess of the anterior pelvic wall. Vancomycin was initiated on Dilaudid given for pain. Review of Systems: A comprehensive review of systems was conducted with the patient and found to be negative except as above in the history of present illness. Allergies Coded Allergies: Penicillins (Verified Allergy, Mild, RASH, 02/12/17) Sulfa (Sulfonamide Antibiotics) (Verified Allergy, Unknown, 02/12/17) Home Medications Patient denies PMH Hepatitis C Heroin abuse Meth abuse Surgical History ACL repair of left knee Spine fusion T6-T12 Reports: Appendectomy Multiple I&D skin abscesses Family History Hepatitis C Heroin abuse Social History Occupation: Does not work Hx Alcohol Use: No Hx Substance Use: Yes (used heroin yesterday a.m.) Hx Tobacco Use: Yes Smoking Status: Current Every Day Smoker Living Arrangement: with Friends/Roommate (Lives in [place].) Exam Vital Signs Vital Sign - Last Date Time Temp Pulse Resp B/P Pulse Ox O2 Delivery O2 Flow Rate FiO2 02/13/17 02:15 37.2 99 18 111/72 97 Room Air Intake and Output 7/15/17 7/15/17 7/16/17 Cumulative From/Thru 15:00 23:00 07:00 02/12/17 20:20 - 02/13/17 00:20 Intake Total 1000 ml 1000 ml Balance 1000 ml 1000 ml Intake IV Total 1000 ml 1000 ml Exam General: Chronically ill-appearing male with poor hygiene awake and alert in no acute distress, appropriately interactive HEENT: Normocephalic, atraumatic. External ears without defect. Pupils equal, round, and reactive to light and accommodation. Anicteric sclerae, moist conjunctivae, and no lid lag. Poor dentition, moist mucous membranes Neck: Supple with full range of motion. No jugular venous distension. Cardiovascular: Tachycardic rate with regular rhythm, no murmurs appreciated Pulmonary: Clear to auscultation bilaterally with no crackles, wheezes, or rhonchi. Normal respiratory effort with no use of accessory muscles. Abdomen: Bowel tones present. Soft, nontender, nondistended. Extremities: Left shoulder and upper arm erythema and tenderness to palpation. Unable to access gluteal abscesses secondary to patient pain. Neurological: Cranial nerves grossly intact. Psychiatric: Normal mood and affect. Alert and oriented to person, place, and time. Lab and Diagnostics Result Diagram: 02/12/17234902/12/172349 Assessment & Plan Mr. Perez is a 57-year-old male with past medical history polysubstance abuse , skin abscesses, hepatitis C admitted for multiple abscesses require surgical incision and drainage. Sepsis. Present on admission. Ongoing - Sepsis criteria met with leukocytosis, tachycardia and probable source of infection multiple abscesses - Lactic acid negative, continued to trend - IV fluids - Continue to monitor Multiple skin abscesses. Present on admission. Ongoing - Per surgery "CT of the pelvis is personally reviewed and reveals approximately 8x3 cm abscess overlying the right gluteus and a 5x3 cm abscess overlying the left gluteus muscle". - Surgery consult, patient to receive I&D - History of MRSA from abscess - Vancomycin initiated in the ED, continue, pharmacy to dose - Blood cultures not taken prior to Vanc initiation - Start ceftriaxone - Pro calcitonin - NPO - Continue IV Dilaudid initiated in ED Nicotine dependence, chronic, ongoing - Nicotine patch Hyponatremia, present on admission. Ongoing - Mild hyponatremia most likely secondary to diarrhea - IV fluids - Continue to monitor Polysubstance abuse. Present on admission. Ongoing - Social work referral for methadone clinic Patient Status: Patient was admitted under inpatient status with expected length of stay greater than two midnights due to severity of presenting symptoms , risk of adverse event, and complexity of treatment plan. GI Prophylaxis: H2 paula (hepa) VTE Prophylaxis Indicated: Contraindicated (scheduled for surgery today) VTE Prophylaxis: SCDs Resuscitation Status: CPR: Attempt Resuscitation Attending Statement Pt seen and examined by myself and agree with above plan. KRYSTA MARAVILLA DO Feb 13, 2017 03:50 Sloane Templeton MD Feb 13, 2017 06:18
--- NOTE | 2017-02-13 05:36 | PCM.CONPHA ---
Subjective Date of Service: Feb 13, 2017 Requesting Provider: KRYSTA MARAVILLA DO Skin abscesses Reason for Pharmacy Consult: Vancomycin Dosing Objective Vital Signs Date Time Temp Pulse Resp B/P Pulse Ox O2 Delivery O2 Flow Rate FiO2 02/13/17 03:54 37.2 94 18 114/71 99 Room Air 02/13/17 02:15 37.2 99 18 111/72 97 Room Air 02/12/17 22:25 37.4 95 20 103/68 95 Room Air 02/12/17 20:20 37.7 124 15 115/73 99 Room Air Weight (Kilograms): 68.18 Height (Feet): 5 Height (Inches): 9 Test 02/12/17 23:50 White Blood Count 23.0th/mm3 (3.8-10.1) Red Blood Count 4.63mil/mm3 (4.40-5.80) Hemoglobin 11.8g/dL (13.8-17.2) Hematocrit 36.0% (41.0-50.0) Mean Corpuscular Volume 77.8fL (81-100) Mean Corpuscular Hemoglobin 25.5pg (27.0-35.0) Mean Corpuscular Hemoglobin Concent 32.8% (32.0-37.0) Red Cell Distribution Width 15.0% (12.3-15.4) Platelet Count 369bil/L (150-400) Neutrophils (%) (Auto) 79.8% (40-74) Lymphocytes (%) (Auto) 10.7% (14-46) Monocytes (%) (Auto) 8.5% (4-12) Eosinophils (%) (Auto) 0.5% (0-5) Basophils (%) (Auto) 0.1% (0-3) Sodium Level 132mEq/L (134-144) Potassium Level 4.0mEq/L (3.5-5.2) Chloride Level 93mEq/L (97-108) Carbon Dioxide Level 23mmol/L (18-29) Blood Urea Nitrogen 13mg/dL (6-24) Creatinine 0.62mg/dL (0.76-1.27) Estimat Glomerular Filtration Rate 142mL/min (>59) Glucose Level 106mg/dL (60-99) Lactic Acid Level 1.1mmol/L (0.4-2.0) Calcium Level 8.3mg/dL (8.5-10.1) Magnesium Level 1.8mg/dL (1.6-2.6) Total Bilirubin 0.4mg/dL (0.0-1.2) Aspartate Amino Transf (AST/SGOT) 27U/L (0-50) Alanine Aminotransferase (ALT/SGPT) 26U/L (0-44) Alkaline Phosphatase 104U/L (25-150) Total Protein 6.9g/dL (6.4-8.4) Albumin 2.9g/dL (3.4-5.0) Assessment/Plan Assessment/Plan A: * Vancomycin dosing by pharmacy for 57 y/o man with sepsis and skin abscesses * He received a 1500 mg IV vancomycin dose in the ED * The patient is also being started on ceftriaxone * Estimated CrCl for the patient is > 120 mL/min (Cockcroft & Gault) * Estimated vancomycin half-life is 7 hours and estimated Vd is 48 liters P: * Start vancomycin 1500 mg IV every 12 hours * Target a vancomycin trough of 15 - 20 mcg/mL for now * Draw a trough level prior to the fourth dose Thank you. Pharmacy will continue to follow this patient. Mela Bettencourt Feb 13, 2017 05:36
[2017-02-13] MEDS: cefTRIAXone Inj 1,000 MG in Dextrose 5% Minibag Plus 50 ML IV SCH ×2 (05:46→17:10)
--- NOTE | 2017-02-13 06:32 | NUR ---
admit to floor from ED Alert c/o bilateral buttock and left shoulder pain related to abscesses. Recently treated for right thigh abscess that was MRSA (+) last month. Placed on contact precautions. IV Dilaudid 1 MG given and pain slightly decreased. Plan for surgical I&D today. Placed NPO 0400. Sharps container removed from room and belongings locked in closet by security. Patient appropriate with care.
[2017-02-13] MEDS: 0.9% Sodium Chloride 1,000 ML IV SCH ×2 (06:42→15:00)
--- NOTE | 2017-02-13 07:57 | DRSVH ---
PROCEDURE: CT PELVIS WITH CONTRAST ([id number]) INDICATIONS: deep buttocks abscess TECHNIQUE: After the administration of intravenous contrast, 5 mm thick sections acquired from the iliac crests to the symphysis. 5 mm coronal and sagittal reformats were acquired. For radiation dose reduction, the following was used: automated exposure control, adjustment of mA and/or kV according to patient size. COMPARISON: None. FINDINGS: Image quality: Excellent. Peritoneum and bowel: Bowel loops demonstrate normal wall thickness and caliber. No free fluid or a ir. Colonic diverticula are present without associated inflammatory change. Genitourinary: Bladder wall thickness is normal. Nodes and vessels: No iliac, pelvic, or inguinal adenopathy by size criteria a low more numerous raúl n is seen.. Iliac vessels demonstrate normal size and enhancement. Bones: No suspicious bony lesions. Miscellaneous: No inguinal hernias. Bilateral enhancing low-attenuation fluid collections identifie d along the superior margin of the gluteal musculature bilaterally, more loculated on the right. The largest on the right measuring 41 mm AP by 8 mm transverse compared to the left measuring 30 mm AP by 67 mm transverse. There is surrounding stranding within the subcutaneous fat. In addition, there is a rounded focus of suspected fluid measuring approximately 7 mm anterior to the right rectus sheath o n series 2 image 11. IMPRESSION: 1. Enhancing fluid collections within the subcutaneous gluteal regions bilaterally most consistent wi th abscess. In addition, a questionable second focus of abscess is noted in the anterior pelvic wall. Numerous inguinal lymph nodes are present consistent with reactionary change. Dictated by: Peg Barr M.D. on 02/13/2017 at 7:49 Approved by: Peg Barr M.D. on 02/13/2017 at 7:55
[2017-02-13] MEDS: Vancomycin Dose per Pharmacist XX SCH (08:13)
[2017-02-13 08:20] LABS: BASOPHILS % (AUTO) 0.2 % (0-3); EOSINOPHILS % (AUTO) 1.3 % (0-5); MONOCYTES % (AUTO) 8.9 % (4-12); Mean Corpuscular Hemoglobin 25.5 pg (27.0-35.0); Mean Corpuscular Volume 77.7 fL (81-100); NEUTROPHILS % (AUTO) 81.2 % (40-74); Platelet Count 274 bil/L (150-400)
[2017-02-13] MEDS ORDERED: Propofol 10,000 mCg/mL 20 mL Inj ONE (08:43)
[2017-02-13] MEDS ORDERED: fentaNYL-PF 50 mCg/mL 2 mL Inj ONE (08:43)
[2017-02-13] MEDS ORDERED: Ondansetron 2 mg/mL 2 mL Inj ONE (08:43)
[2017-02-13 09:30] LABS: Magnesium 1.7 mg/dL (1.6-2.6)
--- NOTE | 2017-02-13 10:56 | NUR ---
TO OR IV saline locked. Consent form has been signed by the patient. Transferred to the OR via a gurney.
[2017-02-13] MEDS: Vancomycin Inj 1,500 MG in 0.9% Sodium Chloride 500 ML IV SCH ×3 (11:00→23:12)
--- NOTE | 2017-02-13 11:04 | NUR ---
Social Work: Attempted Initial Assessment/Multi-Disciplinary Rounds DAP: EMR reviewed. Pt is a 57 y/o male admitted for IV drug use heroin/abscess from both buttocks per H&P. SW attempted to meet with pt to conduct initial assessment - pt screened in for full assessment due to IVDU/CD. Pt was not available and in OR. Per MD in rounds, pt will need CD assessment. SW requested CD order. MD agreeable. SW will attempt to conduct initial assessment once pt arrives back to room. LUANNE Crowe
[2017-02-13] MEDS ORDERED: Lactated Ringer's 500 ML IV PRN (11:06)
[2017-02-13] MEDS: Lactated Ringer's 1,000 ML IV SCH ×2 (11:06→11:11)
--- NOTE | 2017-02-13 11:06 | PCM.HPANE ---
Patient Data Date of Service: Feb 13, 2017 (1100) Surgeon Admitting Provider:Sloane Templeton MD Attending Provider:Venancio Patterson MD Primary Care Physician:Gavin Sapp MD Other Provider: Reason for Visit Iv Drug Use Heroin/Abscess Both Buttocks,Lf [place] Ht/WT & BMI Height (Feet): 5 Height (Inches): 9 Weight (Kilograms): 68.18 Body Mass Index Allergies Coded Allergies: Penicillins (Verified Allergy, Mild, RASH, 02/12/17) Sulfa (Sulfonamide Antibiotics) (Verified Allergy, Unknown, 02/12/17) Past Anesthesia History Anesthesia History: Denies:: Abnormal Airway, Anesthesia Reactions, Difficult Intubation Diabetes History Hx Diabetes?: No MRSA MRSA: Yes (MRSA last month with leg wound) Medications No Active Prescriptions or Reported Meds History History of ENT Problems?: No HEENT History: Denies:: Abnormal Airway Cataracts Difficult Intubation Dysphagia Hearing Problem Sinus Problem TMJ Denture Type: None Teeth Condition: No Teeth Tooth Decay Inflamed Gums Missing Teeth Hx of Heart Problems?: No Cardiovascular History: Denies:: Congestive Heart Failure Hypertension Hx of Respiratory Problem?: Yes Respiratory History: Positive for:: Pneumonia Denies:: Tuberculosis Hx Neurologic Problems?: Yes Neurological History: Positive for:: Seizures (medication related, none in years) Hx of GI Problems?: Yes Other GI Pertinent History: Hepatitis C Hx of Problems?: Yes Genitourinary History: Positive for:: Urinary Tract Infection Male Hx: Denies:: Prostate Problems Other Skin Pertinent History: multiple I/D's for skin abcesses Hx Musculoskeletal Problems?: Yes Musculoskeletal History: Positive for:: Back Injury (back surgeries x 3 chronic pain) Hx of Psycho/Social Problems?: Yes Psycho Social History: Positive for:: Anxiety Hx Depression Hx Surgeries?: Yes (Appendectomy, spinal fusion, numerous I&Ds) Hx Any Other Health Problems?: Yes Other History: Positive for:: Hospitalization (prior abcesses) Denies:: Cancer Thyroid Disease History Blood Transfusions: Denies:: Blood Transfusions Hx Diabetes: No Occupation: Does not work Hx Alcohol Use: NoHx Substance Use: Yes (used heroin yesterday a.m.) Smoking Status: Current Every Day Smoker Have You Smoked inLast 12 mo: Yes Stop/Bang Treated for Sleep Apnea?: No S-Snoring: Do You Snore Loudly: No T-Tired: feel tired, fatigued: No O-Obsered: Observed not breath: No P-Blood Pressure: treated: No B- Body Mass Index > 35 kg/m2: No A- Age over 50: Yes N- Neck Large Circumference: No G- Gender Male: Yes IZA Total Score: 1 IZA Risk Assessment: Low Risk, <3 Yes Risk Assessment Category Category 1A: Patient has history of documented sleep apnea, and HAS NOT received any narcotic, sedative or anesthesia administration during this stay. Category 1B: Patient has history of documented sleep apnea, and HAS received any narcotic , sedative or anesthesia administration during this stay Category 2: Patient has SUSPECTED Obstructive Sleep Apnea, and HAS received any narcotic , sedative or anesthesia administration during this stay. Category 3: Patient has SUSPECTED Obstructive Sleep Apnea and HAS NOT received narcotic, sedative or anesthesia administration during this stay. Category 4: Outpatient in Procedural Areas with known sleep apnea or who screen positive for High Risk via the STOP/BANG questionnaire. Exam Exam Vital Signs Vital Signs Date Time Temp Pulse Resp B/P Pulse Ox O2 Delivery O2 Flow Rate FiO2 02/13/17 08:28 36.9 70 16 103/63 97 Room Air 02/13/17 07:24 37.5 72 16 105/65 95 Room Air 02/13/17 04:20 36.8 72 16 113/71 94 Room Air 02/13/17 03:54 37.2 94 18 114/71 99 Room Air General Appearance: Alert, Oriented X3, Cooperative HEENT/AIRWAY: MP 1 Lungs: Clear to Auscultation Heart: Exam Unremarkable Meds/Labs/Diagnostics Admission Meds Current Medications Sodium Chloride (Normal Saline) 1,000 ml @ 0 mls/hr Q0M ONCE IV Last administered on 02/13/17 00:19; Start 02/12/17 at 22:45; Stop 02/12/17 at 22:57 ; Status DC Pharmacy Consult 1 ea 1 ea OT ONCE XX Last administered on 02/13/17 02:30; Start 02/13/17 at 02:26; Stop 02/13/17 at 02:27; Status DC Vancomycin HCl 1500 mg/Sodium Chloride 500 ml @ 333.333 mls/hr OT ONCE IV Last administered on 02/13/17 02:31; Start 02/13/17 at 02:30; Stop 02/13/17 at 03:59; Status DC Ceftriaxone Sodium 1000 mg/ Dextrose/Water 50 ml @ 100 mls/hr Q12H IV Last administered on 02/13/17 05:46; Start 02/13/17 at 04:30 Sodium Chloride 250 ml @ STK-MED ONCE .ROUTE Last administered on 02/13/17 05:47; Start 02/13/17 at 04:43; Stop 02/13/17 at 04:44; Status DC Sodium Chloride (Normal Saline) 1,000 ml @ 100 mls/hr Q10H IV Last administered on 02/13/17 06:42; Start 02/13/17 at 05:00 Labs Test 02/12/17 23:50 02/13/17 08:10 Lactic Acid Level 1.1mmol/L (0.4-2.0) White Blood Count 23.5th/mm3 (3.8-10.1) Red Blood Count 4.35mil/mm3 (4.40-5.80) Hemoglobin 11.1g/dL (13.8-17.2) Hematocrit 33.8% (41.0-50.0) Mean Corpuscular Volume 77.7fL (81-100) Mean Corpuscular Hemoglobin 25.5pg (27.0-35.0) Mean Corpuscular Hemoglobin Concent 32.8% (32.0-37.0) Red Cell Distribution Width 15.0% (12.3-15.4) Platelet Count 274bil/L (150-400) Neutrophils (%) (Auto) 81.2% (40-74) Lymphocytes (%) (Auto) 7.8% (14-46) Monocytes (%) (Auto) 8.9% (4-12) Eosinophils (%) (Auto) 1.3% (0-5) Basophils (%) (Auto) 0.2% (0-3) Sodium Level 132mEq/L (134-144) Potassium Level 4.0mEq/L (3.5-5.2) Chloride Level 98mEq/L (97-108) Carbon Dioxide Level 20mmol/L (18-29) Blood Urea Nitrogen 10mg/dL (6-24) Creatinine 0.53mg/dL (0.76-1.27) Estimat Glomerular Filtration Rate 170mL/min (>59) Glucose Level 111mg/dL (60-99) Calcium Level 7.9mg/dL (8.5-10.1) Magnesium Level 1.7mg/dL (1.6-2.6) Total Bilirubin 0.4mg/dL (0.0-1.2) Aspartate Amino Transf (AST/SGOT) 25U/L (0-50) Alanine Aminotransferase (ALT/SGPT) 21U/L (0-44) Alkaline Phosphatase 95U/L (25-150) Total Protein 6.2g/dL (6.4-8.4) Albumin 2.5g/dL (3.4-5.0) Procalcitonin 0.11ng/mL (0.00-0.08) Plan Impression Patient chart reviewed, patient interviewed and anesthestic plan with risks, benefits, and alternatives discussed, and informed consent obtained. NPO per Anesth. Guidelines: Yes ASA Physical Status: ASA2 Mod Systemic Disease Anesthetic Plan: GA (prone) Bene/Risks/Altern/Consents: Yes HP Complete Prior to Induction: Yes Maury Rodriguez MD Feb 13, 2017 11:06
[2017-02-13] MEDS ORDERED: Phenylephrine 10,000 mCg/mL Inj IVPUSH PRN (11:10)
[2017-02-13] MEDS ORDERED: fentaNYL-PF 50 mCg/mL 2 mL Inj IVPUSH PRN (11:10)
[2017-02-13] MEDS ORDERED: Dexamethasone 4 mg/mL Inj IVPUSH PRN (11:10)
[2017-02-13] MEDS ORDERED: EPHEDrine Sulfate 50 mg/mL Inj IVPUSH PRN (11:10)
[2017-02-13] MEDS ORDERED: HYDROmorphone 1 mg/mL Inj IVPUSH PRN (11:10)
[2017-02-13] MEDS ORDERED: MetoCLOpramide 5 mg/mL 2 mL Inj IVPUSH PRN (11:10)
--- NOTE | 2017-02-13 12:29 | PCM.SURGOP ---
Surgical Operative Report Date of Service: Feb 13, 2017 Pre Operative Diagnosis Bilateral buttock and left arm abscesses Post Operative Diagnosis Same Procedure: Incision and drainage of bilateral buttock and left arm abscesses, complex ( packed) Surgeon and Supervisor Refining: Surgeon: Adryan Hannah MD Assistants: Francois Harvey MD PGY-3 Indication for Procedure 57-year-old man who admits to use of black tar heroin, who has had past incision and drainage of abscesses. He presented to the hospital with increasing pain in both buttocks as well as the left shoulder, corresponding to heroin injection sites. After discussion of risks and benefits, he agreed to proceed with incision and drainage of bilateral buttock and left arm abscesses. Findings: All 3 sites contained [id number] pus, which was sent from the right buttock abscess only for culture. Procedure Details After smooth induction of general endotracheal anesthesia, he was placed initially in the prone position on a Aditya frame, and was prepped and draped in wide sterile fashion. A procedural pause was performed according to the SCOAP checklist, and all were found to be in agreement. Using an 18-gauge needle, approximately 5 mL of pus was aspirated from the right buttock abscess and sent for culture and Gram stain. His prior transverse right buttock incision was reopened using electrocautery and the abscess cavity was evacuated. A counterincision was made superior and lateral, approximately 5 cm away. Loculations were broken up. Approximately 50 mL of pus was evacuated from the cavity. The cavity was extensively irrigated and suctioned. A one-inch [place] was looped through both incisions, and secured to itself with a 2-0 nylon suture. On the left buttock, an 18-gauge needle was used to identify the cavity, aspirating several cc of pus. A transverse incision was made on the left buttock, and the abscess cavity was encountered and drained. Loculations were broken up. A counterincision was made superiorly , again approximately 5 cm away. The cavity was extensively irrigated and suctioned. A one-inch [place] was looped through both incisions, and secured to itself with a 2-0 nylon suture. Sterile dressings were applied. The patient was rolled over into the supine position, and the left shoulder was reprepped and draped separately. A longitudinal incision was made over the palpable abscess. The abscess cavity was drained. Loculations were broken up bluntly. The cavity was irrigated and suctioned. The cavity extended cephalad and posterior, so a separate counter incision was made superiorly. A one-inch Tarah drain was looped through both incisions, and secured to itself with a 2- 0 nylon suture. Sterile dressings were applied. At the end of the case all needle and sponge counts were correct 2. The patient was awakened from anesthesia without difficulty, and taken to the recovery room in satisfactory condition, having tolerated the procedure well. Complications There were no periprocedural complications identified. Surgical Specimen Removed: No Specimen sent to Pathology: Not applicable Anesthetic Plan: GA (prone) Grafts, Implants: None Output, Estimated Blood Loss: 30 Blood Administration during munoz: No Drains: Pen Marilou (x 3) Catheters: None Attending Statement I personally was present during the entire operation. copies to: Gavin Sapp MD, Joshua D MD Feb 13, 2017 12:29
--- NOTE | 2017-02-13 12:43 | PCM.ANEP1 ---
Post Anesthesia PACU Phase 1 Assessment Vital Signs 128/83, 98%, 92, 36.0, 20 Vital Signs Date Time Temp Pulse Resp B/P Pulse Ox O2 Delivery O2 Flow Rate FiO2 02/13/17 08:28 36.9 70 16 103/63 97 Room Air 02/13/17 07:24 37.5 72 16 105/65 95 Room Air Anesthetic Administered: GA Level of Alertness: Awake, talking FUENTES's with Equal Strength: Yes Pain: No Pain Scale Score: 5 Nausea or Vomiting: No CV Function & Hydration Stable: Yes Airway Device: none Oxygen Delivery: Simple Mask Lungs: Clear to Auscultation Dermatome Level: Full Sensation Summary uneventful GETA. PACU Phase 2 Assessment Complications: No Follow up Care: No Patient Instructions Provided: N/A Maury Rodriguez MD Feb 13, 2017 12:43
--- NOTE | 2017-02-13 13:27 | NUR ---
RECEIVED FROM PACU Patient received from PACU via a gurney. Transferred to bed with assist. IVF ongoing. Patient rated his pain as 10/10 in his buttocks. Denies nausea. No emesis noted. Denies SOB. Dressing on his L upper arm is CDI. No drainage noted. Dressings on his L/R buttocks. Moderated amount of sanguinous output noted from buttock sites. Oriented to room and call light.
[2017-02-13] MEDS ORDERED: HYDROmorphone 1 mg/mL Inj IVPUSH ONE (14:00)
[2017-02-14] MEDS: 0.9% Sodium Chloride 1,000 ML IV SCH ×2 (03:32→08:47)
[2017-02-14] MEDS: HYDROmorphone 1 mg/mL Inj IVPUSH PRN ×7 (03:37→21:25)
[2017-02-14] MEDS: cefTRIAXone Inj 1,000 MG in Dextrose 5% Minibag Plus 50 ML IV SCH ×2 (03:37→15:58)
[2017-02-14 05:57] VITALS: BP 114/67; PULSE 62; RESP 16; O2SAT 99
[2017-02-14 08:09] LABS: BASOPHILS % (AUTO) 0.4 % (0-3); EOSINOPHILS % (AUTO) 1.6 % (0-5); MONOCYTES % (AUTO) 6.2 % (4-12); Mean Corpuscular Hemoglobin 25.8 pg (27.0-35.0); Mean Corpuscular Volume 78.3 fL (81-100); NEUTROPHILS % (AUTO) 78.8 % (40-74); Platelet Count 329 bil/L (150-400)
[2017-02-14] MEDS: Vancomycin Dose per Pharmacist XX SCH (08:46)
[2017-02-14 08:58] VITALS: BP 113/70; PULSE 67; RESP 16; O2SAT 97
[2017-02-14] MEDS ORDERED: Vancomycin Serum Trough XX ONE (10:30)
--- NOTE | 2017-02-14 11:42 | PCM.PNMED ---
Subjective Date of Service Feb 14, 2017 Subjective Patient seen and examined today. Says he feels better. Vitals stable. Exam Vital Signs Vital Sign - Last Date Time Temp Pulse Resp B/P Pulse Ox O2 Delivery O2 Flow Rate FiO2 02/14/17 08:58 36.7 67 16 113/70 97 Room Air 02/13/17 12:40 10 Intake and Output 02/13/17 02/13/17 02/14/17 Cumulative From/Thru 15:00 23:00 07:00 02/12/17 20:20 - 02/14/17 06:43 Intake Total 700 ml 1613 ml 2194 ml 5507 ml Output Total 30 ml 200 ml 250 ml 480 ml Balance 670 ml 1413 ml 1944 ml 5027 ml Intake Oral 658 ml 626 ml 1284 ml IV Total 700 ml 955 ml 1568 ml 4223 ml Output Urine Total 200 ml 250 ml 450 ml Estimated Blood Loss 30 ml 30 ml # Bowel Movements 0 0 Exam General:Not in distress HEENT: Normocephalic, atraumatic. External ears without defect. Pupils equal, round, and reactive to light and accommodation. Anicteric sclerae, moist conjunctivae, and no lid lag. Poor dentition, moist mucous membranes Cardiovascular: Tachycardic rate with regular rhythm, no murmurs appreciated Pulmonary: Clear to auscultation bilaterally with no crackles, wheezes, or rhonchi. Normal respiratory effort with no use of accessory muscles. Abdomen: Bowel tones present. Soft, nontender, nondistended. Extremities:well healing surgical scar on left, right gluteal area, and left shoulder Neurological: Cranial nerves grossly intact. Psychiatric: Normal mood and affect. Alert and oriented to person, place, and time. Lab and Diagnostics Result Diagram: 02/14/17 0800 02/14/17 0530 Assessment & Plan Mr. Perez is a 57-year-old male with past medical history polysubstance abuse , skin abscesses, hepatitis C admitted for multiple abscesses require surgical incision and drainage. Sepsis. Present on admission. Ongoing - Sepsis criteria met with leukocytosis, tachycardia and probable source of infection multiple abscesses - Lactic acid negative - WBCs trending down - Continue to monitor Multiple skin abscesses. Present on admission. Ongoing - Per surgery "CT of the pelvis is personally reviewed and reveals approximately 8x3 cm abscess overlying the right gluteus and a 5x3 cm abscess overlying the left gluteus muscle". - Surgery consult, patient had I&D - History of MRSA from abscess - continue ceftriaxone and vancomycin - Continue IV Dilaudid initiated in ED Nicotine dependence, chronic, ongoing - Nicotine patch Hyponatremia, present on admission. resolved - Mild hyponatremia most likely secondary to diarrhea - Continue to monitor Polysubstance abuse. Present on admission. Ongoing - Social work referral for methadone clinic Disposition: to be determined, pending clinical improvement. GI Prophylaxis: H2 paula (hepa) VTE Prophylaxis: SCDs VTE Mechanical Devices: Intermittant Pneumatic CD Resuscitation Status: CPR: Attempt Resuscitation Time spent 35 mins Ed Salazar MD Feb 14, 2017 11:41 Resuscitation Status: CPR: Attempt Resuscitation Ed Salazar MD Feb 14, 2017 11:41
[2017-02-14] MEDS: Vancomycin Inj 1,500 MG in 0.9% Sodium Chloride 500 ML IV SCH (11:54)
[2017-02-14] MEDS: Heparin 5,000 Unit/mL Inj SUBQ SCH ×2 (11:54→19:44)
--- NOTE | 2017-02-14 12:59 | PCM.PHAPRO ---
Progress Skin abscesses Vancomycin Management by Pharmacy: -pt is currently receiving Vancomycin 1.5gm iv [id number] for sepsis/skin abscesses from ivdu -trough level returned this morning as 10.9, below goal of 15-20 -Plan: will change regimen to Vancomycin 1gm iv [id number] (20-01-14) and new trough level shall be drawn at 2130 on 02/15. serum creatinine to be monitored while on Renata Cavazos [facility] Feb 14, 2017 12:59
[2017-02-14 17:55] VITALS: BP 142/72; PULSE 53; RESP 16; O2SAT 97
--- NOTE | 2017-02-14 18:34 | NUR ---
POST-OP PROGRESS Dilaudid 1 mg IV and Oxicodone 5 mg PO has been helpful for pain control. Via FELDT scale patients pain level is 0/10 after his pain medication. Tolerating liquids PO and his diet well. Denies nausea. No emesis noted. Denies SOB. Patient is able to get OOB with SBA to the bathroom. Dressing in his R arm is CDI. Dressing in his buttocks has moderate sanguinous drainage noted. Patient showered. Dressing in his buttocks and L arm changed. Tarah drain is in place.
[2017-02-14 20:16] VITALS: BP 120/68; PULSE 62; RESP 18; O2SAT 93
[2017-02-14] MEDS: Vancomycin 1 Gm/200 mL NS Premix IV SCH (22:28)
[2017-02-15] MEDS: HYDROmorphone 1 mg/mL Inj IVPUSH PRN ×4 (00:54→08:20)
[2017-02-15] MEDS: Heparin 5,000 Unit/mL Inj SUBQ SCH ×3 (03:05→16:34)
[2017-02-15] MEDS: 0.9% Sodium Chloride 1,000 ML IV SCH ×3 (03:05→18:55)
[2017-02-15 06:01] LABS: BASOPHILS % (AUTO) 0.7 % (0-3); MONOCYTES % (AUTO) 7.8 % (4-12); Mean Corpuscular Hemoglobin 25.1 pg (27.0-35.0); Mean Corpuscular Volume 75.6 fL (81-100); NEUTROPHILS % (AUTO) 59.1 % (40-74); Platelet Count 330 bil/L (150-400)
[2017-02-15 06:06] VITALS: BP 128/66; PULSE 58; RESP 18; O2SAT 96
[2017-02-15] MEDS: Vancomycin 1 Gm/200 mL NS Premix IV SCH (06:07)
--- NOTE | 2017-02-15 06:28 | NUR ---
Pain/Activity Pt has taken PRN 1mg IV Dilaudid q2H this shift for c/o pain 6 - 8 out of 10. Pt tolerates SBA to BR very well. Bilateral buttocks dressings were changed. Minimal/moderate sero-sanguinous fluid on abd's with right side more than left. ULE dressing remains C/D/I. Running Vanco concurrent with NS to keep IV line intact due to previous right IV infiltrating.
[2017-02-15] MEDS: Vancomycin Dose per Pharmacist XX SCH (08:12)
[2017-02-15 08:26] VITALS: BP 130/74; PULSE 70; RESP 16; O2SAT 97
[2017-02-15] MEDS ORDERED: cefTRIAXone 2,000 mg/D5W 50 mL IV Minibag Plus IV SCH ×2 (08:30)
--- NOTE | 2017-02-15 11:31 | NUR ---
PAIN 0800 Patient rated his pain as 7/10 on his buttocks. Dilaudid IV administered. 0900 Via FELDT scale patient pain level is 0/[address] after his pain medication[address] Dr. Salazar made aware RE: Patients pain level and pain medication use. 1045 Patient rated his pain as 7/10 on his buttocks. Patient made aware that the Dilaudid IV has been d/cd. Patient is to transition to PO medication. APAP and Oxicodone 5 mg PO administered. Per patient since he is a heroin user this will not be an adequate dose for pain relief for him. Dr. Salazar made aware. Dose changed to 7.5 mg. 1135 Patient continues to rate his pain as 7/10. Extra 2.5 mg PO administered to equal the 7.5 mg dose. Will continue to monitor pain level. Patient has been tolerating liquids PO and his diet well. Denies nausea. Complained of slight SOB. Instructed patient RE: IS use, CDB and mobilization. Patient is able to get OOB and ambulate in the room with SBA. Dressing in his L arm is CDI. Dressing in his buttocks has moderate amount of sanguinous output. Voiding without any problems.
--- NOTE | 2017-02-15 12:01 | PCM.PNMED ---
Subjective Date of Service Feb 15, 2017 Subjective Patient lying comfortably in bed with no complaints at this point. Vitals stable. Exam Vital Signs Vital Sign - Last Date Time Temp Pulse Resp B/P Pulse Ox O2 Delivery O2 Flow Rate FiO2 02/15/17 08:26 36.6 70 16 130/74 97 Room Air 02/13/17 12:40 10 Intake and Output 02/14/17 02/14/17 02/15/17 Cumulative From/Thru 15:00 23:00 07:00 02/12/17 20:20 - 02/15/17 06:33 Intake Total 2753 ml 1280 ml 9540 ml Output Total 550 ml 350 ml 1380 ml Balance 2203 ml 930 ml 8160 ml Intake Oral 471 ml 1755 ml IV Total 1637 ml 809 ml 6669 ml TPN/PPN 1116 ml 1116 ml Output Urine Total 550 ml 350 ml 1350 ml Estimated Blood Loss 30 ml # Bowel Movements 2 0 2 Exam General:Not in distress Cardiovascular:Normal sinus rythm, no murmurs appreciated Pulmonary: Clear to auscultation bilaterally with no crackles, wheezes, or rhonchi. Normal respiratory effort with no use of accessory muscles. Abdomen: Bowel tones present. Soft, nontender, nondistended. Extremities:well healing surgical scar on left, right gluteal area, and left shoulder, no signs of erythema Neurological: Cranial nerves grossly intact. Psychiatric: Normal mood and affect. Alert and oriented to person, place, and time. Lab and Diagnostics Result Diagram: 02/15/17 0510 02/15/17 0510 Microbiology Abscess wound cultures positive for MRSA Assessment & Plan Mr. Perez is a 57-year-old male with past medical history polysubstance abuse , skin abscesses, hepatitis C admitted for multiple abscesses require surgical incision and drainage. Sepsis. Present on admission. Resolved - Sepsis criteria met with leukocytosis, tachycardia and probable source of infection multiple abscesses - Lactic acid negative - WBCs trending down - Continue to monitor Multiple skin abscesses. Present on admission. Ongoing - Per surgery "CT of the pelvis is personally reviewed and reveals approximately 8x3 cm abscess overlying the right gluteus and a 5x3 cm abscess overlying the left gluteus muscle". - Surgery consult, patient had I&D - positive for MRSA (abscess collection) - continue ceftriaxone and vancomycin - dc iv diluadid , on oxcycodone oral Nicotine dependence, chronic, ongoing - Nicotine patch Hyponatremia, present on admission. resolved - Mild hyponatremia most likely secondary to diarrhea - Continue to monitor Polysubstance abuse. Present on admission. Ongoing - Social work referral for methadone clinic Disposition: to be determined, pending clinical improvement. GI Prophylaxis: H2 paula (hepa) VTE Prophylaxis: SCDs VTE Mechanical Devices: Intermittant Pneumatic CD Resuscitation Status: CPR: Attempt Resuscitation Time spent 35 mins Ed Salazar MD Feb 15, 2017 12:01
[2017-02-15 12:13] VITALS: BP 124/65; PULSE 60; RESP 18; O2SAT 95
[2017-02-15] MEDS ORDERED: Oritavancin Diphosphate 400 mg Vial IV ONE (14:10)
[2017-02-15] MEDS ORDERED: Oritavancin Diphosphate 1,200 MG in Dextrose 5% 1,000 ML IV ONE (14:25)
--- NOTE | 2017-02-15 14:35 | CONS ---
[address] [address] CONSULTATION REPORT PATIENT: HODAN GALAN : 1960 MR#: [id number] ADMIT: 02/13/2017 JOB ID: [id number] DATE OF SERVICE: 02/15/2017 INFECTIOUS DISEASE CONSULTATION: I thank Dr. Salazar for this timely consult. REASON FOR CONSULTATION: Bilateral buttock abscess and left shoulder abscess in an IM black tar heroin user. HISTORY OF PRESENT ILLNESS: The patient is a 57-year-old frequent IM heroin user who presented to the hospital and was admitted back on the with recurrent abscesses in his left shoulder as well as both buttocks. He underwent incision and drainage of these wounds yesterday by Dr. Hannah. At that time, purulent material was encountered in these areas and appropriate dressings were done. The patient reports that there has been a decrease in the pain from these three abscesses since that time, and that he is starting to feel better but simultaneously is feeling under the weather because he is starting to withdraw from narcotics. At no point did the patient have fevers, chills, sweats or constitutional symptoms related to these abscesses. He also denies any significant headache, sore throat or pulmonary or GI symptoms in relationship to these abscesses. PAST MEDICAL HISTORY: 1. Multiple soft tissue abscesses secondary to IV and IM narcotic use. 2. Polysubstance abuse including black tar heroin recently and meth in the past. 3. Hepatitis C status unknown with respect to this infection and its resolution. 4. Status post appendectomy. SOCIAL HISTORY: The patient is an unemployed gentleman who lives in [place]. He is a cigarette smoker as well as a frequent IM drug user. He does not drink alcohol. FAMILY HISTORY: Negative for TB in first and second-degree relatives. He has no history of TB exposure. REVIEW OF SYSTEMS: No significant headache, visual change or sore throat. He does have very poor dentition and he is well aware of that. No significant cough, shortness of breath, chest pain, nausea, vomiting, diarrhea or dysuria. Remainder of the review of systems is negative. PHYSICAL EXAMINATION: Reveals an afebrile gentleman, temperature 36.4, pulse 60, respiratory rate 18, blood pressure 124/65. She is saturating reasonably well on room air. He is in no acute distress. His head is without trauma. Eyes without conjunctivitis. Mental status clear. Oral cavity with very poor dentition. Broken off carious teeth are present. No evidence of pharyngitis. No thrush or hairy leukoplakia. Neck without adenopathy. No JVD. Lungs quite clear. Cardiac tones regular rate and rhythm without murmur. Abdomen soft and nontender without organomegaly. Does not have a Anton catheter. His extremities are without evidence of synovitis or infection. No significant skin rashes noted. The patient has packed wounds present over his buttocks as well as his left shoulder. Neurologically he is intact. LABORATORIES: Include white blood count 23,000 when he came in on the . It has now down exactly half to 11,500. He did have a left shift. He now has a normal differential. Creatinine 0.47. LFTs entirely normal. Lipase 46. Micro studies include abscess culture positive for MRSA. Note that on prior admission back in December, he grew MRSA and Bacteroides. Pelvic CT was done on admission that showed enhancing fluid collections within the gluteal regions bilaterally compatible with abscesses which was proven when he went to surgery. IMPRESSION: This is a 57-year-old IM substance abuse user who presents with three abscesses at sites of IM black tar heroin injection. These sites include his left shoulder as well as both buttocks. Cultures are growing MRSA. This has been grown numerous times in the past including just in December. The simplest way to manage this patient would be with a single dose of oritavancin. Because he grew Bacteroides in the past, it might be prudent to send him out with a short course of Flagyl as well and this should not be a problem as he is not on Coumadin and he is not an alcohol consumer. We should also does investigate just to see whether he still has active hepatitis C. RECOMMENDATIONS: 1. Oritavancin 1.2 g x1. 2. The patient can be discharged at any time to take Flagyl 500 mg p.o. b.i.d. for 10 days. 3. Will check hep C serology and viral load as well as HIV and hepatitis B serologies. 4. The patient has expressed interest in a methadone clinic and I think that would be of great value. 5. We reiterated to the patient that he should have his carious teeth removed. 6. ID will go ahead and sign off as there are no active issues. Thank you very much for this consult.
[2017-02-15 20:15] VITALS: BP 144/73; PULSE 52; RESP 18; O2SAT 97
--- NOTE | 2017-02-15 20:21 | NUR ---
pain/activity/oritavancin infusion assumed care of patient at 1515. patient states pain "7/10" all shift. medicated with prn oxycodone and tylenol as ordered. dressing to buttocks and shoulder c/d/i. patient up in room independently to void all shift. oritavancin infusion started per day rn Justice and finished after 3 hours. IV site flushed with D5w before per day RN and flushed after with D5w as per protocol. verified protocol with pharmacist Renata Sexton. after infusion complete and iv site flushed with d5w normal saline at 100ml/hr restarted as per orders. iv site checked multiple times during and after infusion and remains wnl. patient denies pain at iv site. report given to oncoming rn at 1900.
[2017-02-15] MEDS: Mupirocin 2% 22 Gm Ointment NASAL SCH (21:00)
[2017-02-15] MEDS ORDERED: diphenhydrAMINE 25 mg Capsule PO PRN (21:00)
[2017-02-15] MEDS ORDERED: Vancomycin Serum Trough XX ONE (21:30)
[2017-02-16] MEDS: Heparin 5,000 Unit/mL Inj SUBQ SCH ×2 (01:41→09:18)
[2017-02-16] MEDS: 0.9% Sodium Chloride 1,000 ML IV SCH (02:40)
[2017-02-16 05:52] VITALS: BP 152/81; PULSE 50; RESP 18; O2SAT 98
[2017-02-16 06:33] LABS: BASOPHILS % (AUTO) 0.3 % (0-3); EOSINOPHILS % (AUTO) 2.2 % (0-5); MONOCYTES % (AUTO) 5.8 % (4-12); Mean Corpuscular Hemoglobin 25.4 pg (27.0-35.0); Mean Corpuscular Volume 77.2 fL (81-100); NEUTROPHILS % (AUTO) 76.2 % (40-74); Platelet Count 374 bil/L (150-400)
--- NOTE | 2017-02-16 06:37 | NUR ---
Pain/ Sleep Patient c/o difficulty sleeping at start of shift, Night hospitalist notified. New order for medication placed, patient agreeable to order, able to rest through out night with occasional c/o of persistent pain. Care continues.
--- NOTE | 2017-02-16 08:09 | PCM.PNSURG ---
Subjective Date of Service: Feb 16, 2017 Date of Service: Feb 16, 2017 Visit Information: Reason for Visit Iv Drug Use Heroin/Abscess Both Buttocks,Lf Deltoi Surgery/Surgery Date Post-Op Day # Date of Admission: Feb 13, 2017 at 03:30 Hospital Day # Subjective: The patient is resting in bed when examined. He continues to have pain at the abscess sites on both buttocks and left deltoid but otherwise has no complaints. He has no nausea, fevers, chills or SOB. Gastrointestinal: Good Appetite, Tolerating Oral Feedings, Passing Stool Pain Management: PO Postop Activity: Ambulating Independently Objective Objective CBC Test 02/16/17 05:10 White Blood Count 11.6th/mm3 (3.8-10.1) Red Blood Count 4.26mil/mm3 (4.40-5.80) Hemoglobin 10.8g/dL (13.8-17.2) Hematocrit 32.9% (41.0-50.0) Mean Corpuscular Volume 77.2fL (81-100) Mean Corpuscular Hemoglobin 25.4pg (27.0-35.0) Mean Corpuscular Hemoglobin Concent 32.8% (32.0-37.0) Red Cell Distribution Width 14.5% (12.3-15.4) Platelet Count 374bil/L (150-400) Neutrophils (%) (Auto) 76.2% (40-74) Lymphocytes (%) (Auto) 15.2% (14-46) Monocytes (%) (Auto) 5.8% (4-12) Eosinophils (%) (Auto) 2.2% (0-5) Basophils (%) (Auto) 0.3% (0-3) CMP Test 02/13/17 08:10 02/13/17 16:32 02/15/17 05:10 02/16/17 05:10 Magnesium Level 1.7mg/dL Total Bilirubin 0.4mg/dL Aspartate Amino Transf (AST/SGOT) 25U/L Alanine Aminotransferase (ALT/SGPT) 21U/L Alkaline Phosphatase 95U/L Total Protein 6.2g/dL Albumin 2.5g/dL Procalcitonin 0.11ng/mL Lactic Acid Level 0.9mmol/L Lipase 46U/L Sodium Level 135mEq/L Potassium Level 3.8mEq/L Chloride Level 99mEq/L Carbon Dioxide Level 20mmol/L Blood Urea Nitrogen 7mg/dL Creatinine 0.49mg/dL Estimat Glomerular Filtration Rate 186mL/min Glucose Level 107mg/dL Calcium Level 8.4mg/dL Vital Sign- Last 8 Hours Date Time Temp Pulse Resp B/P Pulse Ox O2 Delivery O2 Flow Rate FiO2 02/16/17 05:52 36.5 50 18 152/81 98 Room Air Intake and Output- Last 8 Hour 02/16/17 Cumulative From/Thru 07:00 02/12/17 20:20 - 02/16/17 06:19 Intake Total 1088 ml 49678 ml Output Total 2770 ml 4850 ml Balance -1682 ml 8690 ml Intake Oral 1088 ml 3555 ml IV Total 8869 ml TPN/PPN 1116 ml Output Urine Total 2770 ml 4820 ml Estimated Blood Loss 30 ml # Bowel Movements 0 2 General: Alert, Cooperative, No Acute Distress Lungs: Clear to Auscultation Neuro: Cranial Nerves 2-12 nl, Normal Speech Catheters: None Result Diagram: 02/16/1710 02/16/17 0510 Assessment & Plan Problems: (1) Abscess of multiple sites of buttock Status: Acute ICD Code: L02.31 (2) Abscess of left shoulder Status: Acute ICD Code: L02.414 Plan Multiple skin abscesses. Present on admission. resolving - Incisions are healing appropriately with minimal drainage, erythema and induration around sites - War drains in place in bilateral buttock incisions and left deltoid incisions - Abscess cultures positive for MRSA - A single dose of Oritavancin 1.2 g was given yesterday to cover MRSA per ID as well as a recommendation for Flagyl 500 mg PO bid for 10 days. - Pain management via PO oxycodone and acetaminophen - Leukocytosis is resolving - From a surgical stand point patient is ready for discharge Pain Management: PO oxycodone and acetaminophen VTE Prophylaxis: SCDs Resuscitation Status: CPR: Attempt Resuscitation Paula Vazquez DO Feb 16, 2017 08:09
[2017-02-16] MEDS ORDERED: Oritavancin Diphosphate 400 mg Vial IV ONE (08:40)
--- NOTE | 2017-02-16 09:00 | NUR ---
Refusals Pt refuses to let this RN [place] assessment. Care continues
[2017-02-16] MEDS: Mupirocin 2% 22 Gm Ointment NASAL SCH (09:20)
[2017-02-16] MEDS ORDERED: Mupirocin 2% 22 Gm Ointment NASAL SCH (10:30)
--- NOTE | 2017-02-16 10:51 | NUR ---
Social Work- Initial Assessment/Readiness for Discharge/Multidisciplinary Rounds Data: See Initial Assessment. Pt is a 57 year old male admitted 02/13/17 for IV Drug Use, Heroin/Abscess Both Buttocks per H&P. Pt's insurance is [employer]. Pt's PCP is Gavin Sapp MD. Pt's readmit risk scores is 2. Pt has no NOK and did not provide CHEMICAL ENGINEERING PROFESSOR with one at bedside. Per multidisciplinary rounds, pt will discharge today. Pt will require PCP follow up and outpt wound care. SW met with pt at bedside regarding discharge plan, pt alert and oriented x3. Pt's capacity for self-care assessed. Pt resides with friends in [place] where he is independent at baseline. Pt receives 1500 each month from his father for living expenses. Pt rents a house in [place] and his roommates sublet from him. Pt has a history of IVDU, heroin. Pt reports that his roommates all use but he is going to kick them out. Pt states that he could afford the rent without roommates. Pt was not interested in completing CHEMICAL ENGINEERING PROFESSOR CD assessment, nor was he interested in speaking with CDP at this time. Pt is very motivated to leave the hospital and threatened to leave AMA multiple times this morning. Pt states that he is very motivated to stop using heroin and wants to get connected to a methadone clinic. Pt stated that he has already contacted [facility] in [place]. Pt does not drive and plans on taking the bus from [place] to [place] for his methadone appointments. Pt was agreeable to outpt CD resources for IOP programs, JEANNIE provided this. Pt has no history of IOP programs. Pt is agreeable to PCP follow up and outpt wound care. [facility] contact pt's PCP and is making an appointment with Gavin Sapp MD. [facility] contact Wound Care to arrange outpt follow up and Wound Care states that due to pt's insurance his PCP must arrange his outpt wound care. Pt also has a history of non compliance so pt will have to go see his PCP at [facility] and then his PCP can arrange outpt wound care. Then, Wound Care is happy to schedule pt's appointments. JEANNIE spoke with pt about scheduling his outpt wound care through [facility] because he is already planning on going to [facility] for methadone. Pt was not agreeable to that and requested that we set it up through his PCP. Pt states he has not seen his PCP is a while and needs that follow up anyway. SW instructed pt on how important it is for pt to follow up wit his PCP and receive his wound care appointment. Pt stated understanding. SANJU is awaiting return call from pt's PCP bone char kiln operator regarding date and time for pt's appointment. SW will continue to follow. Assessment: Pt who is independent at baseline and who requires outpt wound care follow up Plan: SANJU is awaiting return call from pt's PCP bone char kiln operator regarding date and time for pt's appointment. Pt prefers being able to go to wound care in rather than [place]. Pt's insurance requires pt's PCP to schedule outpt wound care. Pt denied scheduling wound care through [facility] in [place]. Pt to discharge home to [place] via bus pending scheduling of appointments. SW will continue to follow. LUANNE Eric Addendum: 02/16/17 at 1114 by IRINA TOSCANO Amended: Links added.
--- NOTE | 2017-02-16 10:55 | PCM.DIMED ---
Discharge Instructions Date of Service Feb 16, 2017 Dates of Hospitalization Feb 13, 2017 at 03:30 Discharge Diagnosis Discharge Diagnosis Sepsis 2/2 soft tissue infection with abscess Diet Discharge Diet: Heart Healthy Activity Discharge Activity: Limited until seen by PCP Call your provider Call your provider for: Fever or Chills, Chest pain, Vomitting, Excessive diarrhea Patient Instructions Follow-up plan Wound care outpatient. To follow up at resident clinic if cannot find an earlier pcp appointment. Follow-up with PCP in: 1 week Ed Salazar MD Feb 16, 2017 10:55
[2017-02-16] MEDS ORDERED: METR500T PO (10:57)
[2017-02-16] MEDS ORDERED: OXYC5TAB72 PO (10:57)
[2017-02-16] MEDS ORDERED: SENN-133 PO (10:57)
--- NOTE | 2017-02-16 12:03 | NUR ---
DC All discharge instructions reviewed with pt. Prescriptions in hand. Pt states that he understands that if his prescriptions are lost he will NOT get them reprinted. All belongings in hand. Pt states that he understands all instructions. Pt understands that the appointments scheduled at the residency clinic must be attended or wound care will not schedule an appointment with him. Supplies to care for wounds sent home with pt. Pt understands that he has not had a wound care consult and the risks involved. Pt ambulated with steady gait to front doors on own to be picked up by friend. Care discontinues Addendum: 02/16/17 at 1206 by MELISSA LUGO RN Pt pulled own IV out. No bleeding noted.
--- NOTE | 2017-02-16 12:24 | NUR ---
Social Work- Discharge Data: Pt is medically ready for discharge. Pt will be required to schedule his PCP appointment in one week. If pt is not able to schedule a PCP appointment earlier than February 23, pt will go to the residency clinic to be seen by Dr. Matilde Vazquez. Pt's PCP or Dr. Vazquez will schedule pt's wound care appointments in [place]. These instructions are in pt's discharge instructions. Pt discharged home with friend to transport via POV. No additional needs identified. Assessment: Pt who is independent at baseline and who requires outpt wound care follow up Plan: Pt will be required to obtain PCP follow up with Dr. Sapp or Dr. Vazquez to schedule his outpt wound care appointments. Pt was given dressing supplies at discharge. Pt discharged home with friend to transport via POV. No additional needs identified. Bekah Miller MSW
--- NOTE | 2017-02-16 17:23 | PCM.DC.MED ---
Discharge Summary Date of Service Feb 16, 2017 Dates of Hospitalization Date of Hospital Admission Feb 13, 2017 at 03:30 Date of Discharge: Feb 16, 2017 Providers: Admitting Physician: Sloane Templeton MD Primary Care Physician: Gavin Sapp MD Attending Physician: Ed Spears MD Diagnosis at Time of Discharge Diagnosis at Time of Discharge Sepsis 2/2 soft tissue infection with abscess Brief History Mr. Perez is a 57-year-old male with past medical history polysubstance abuse , skin abscesses, hepatitis C who presents to the ED secondary to abscesses in his left shoulder and bilateral buttocks. He is a habitual user of black tar heroin through both the IM and IV routes. He has injected into his currently infected sites approximately 3 times within the last 2 weeks, last used yesterday at approximately 1500. He reports progressive pain in these areas starting approximately 5 days ago, with accompanying erythema, tenderness to palpation. He has previous history abscesses requiring incision and drainage, most recently January 09 to his right thigh which was MRSA positive. He left AMA on January 11 but reportedly continued with home wound care. He does not report any drainage from these areas also denies fevers/chills, nausea/vomiting, chest pain, shortness of breath or abdominal pain. In the ED white count found to be 23,000 with 80% neutrophils, sodium 132, lactic acid 1.1. CT showed large bilateral deep gluteal subcutaneous abscesses , and small abscess of the anterior pelvic wall. Vancomycin was initiated on Dilaudid given for pain. Hospital Course Mr. Perez is a 57-year-old male with past medical history polysubstance abuse , skin abscesses, hepatitis C admitted for multiple abscesses require surgical incision and drainage. Sepsis. Present on admission. Resolved - Sepsis criteria met with leukocytosis, tachycardia and probable source of infection multiple abscesses - Lactic acid negative - WBCs trended down - discharged on Flagyl, got one time dose of oritavancin Multiple skin abscesses. Present on admission. Ongoing - Per surgery "CT of the pelvis is personally reviewed and reveals approximately 8x3 cm abscess overlying the right gluteus and a 5x3 cm abscess overlying the left gluteus muscle". - Surgery consult, patient had I&D - positive for MRSA (abscess collection) - got ceftriaxone and vancomycin in patient, was then given one time dose of oritavancin - discharged on flagyl as per ID recs Nicotine dependence, chronic, ongoing - Nicotine patch Hyponatremia, present on admission. resolved - Mild hyponatremia most likely secondary to diarrhea - Continue to monitor Polysubstance abuse. Present on admission. Ongoing - Social work referral for substance dependence Disposition: home, wound care to be done outpatient. Exam Vital Signs (Last) Date Time Temp Pulse Resp B/P Pulse Ox O2 Delivery O2 Flow Rate FiO2 02/16/17 05:52 36.5 50 18 152/81 98 Room Air 02/13/17 12:40 10 Test 02/13/17 08:10 02/13/17 16:32 02/14/17 10:40 02/15/17 05:10 Magnesium Level 1.7mg/dL (1.6-2.6) Total Bilirubin 0.4mg/dL (0.0-1.2) Aspartate Amino Transf (AST/SGOT) 25U/L (0-50) Alanine Aminotransferase (ALT/SGPT) 21U/L (0-44) Alkaline Phosphatase 95U/L (25-150) Total Protein 6.2g/dL (6.4-8.4) Albumin 2.5g/dL (3.4-5.0) Procalcitonin 0.11ng/mL (0.00-0.08) Lactic Acid Level 0.9mmol/L (0.4-2.0) Vancomycin Level Trough 10.9mcg/mL Lipase 46U/L (13-60) Test 02/15/17 15:00 02/16/17 05:10 Hepatitis A Antibody Total Negative (Negative) Hepatitis B Surface Antigen Negative (Negative) Hepatitis B Surface Antibody Non reactive (.) Hepatitis B Core Total Antibody Negative (Negative) Hepatitis C Antibody >11.0s/co ratio HIV (1&2) Ag and Ab, 4th Generation Non reactive (Non Reactive) White Blood Count 11.6th/mm3 (3.8-10.1) Red Blood Count 4.26mil/mm3 (4.40-5.80) Hemoglobin 10.8g/dL (13.8-17.2) Hematocrit 32.9% (41.0-50.0) Mean Corpuscular Volume 77.2fL (81-100) Mean Corpuscular Hemoglobin 25.4pg (27.0-35.0) Mean Corpuscular Hemoglobin Concent 32.8% (32.0-37.0) Red Cell Distribution Width 14.5% (12.3-15.4) Platelet Count 374bil/L (150-400) Neutrophils (%) (Auto) 76.2% (40-74) Lymphocytes (%) (Auto) 15.2% (14-46) Monocytes (%) (Auto) 5.8% (4-12) Eosinophils (%) (Auto) 2.2% (0-5) Basophils (%) (Auto) 0.3% (0-3) Sodium Level 135mEq/L (134-144) Potassium Level 3.8mEq/L (3.5-5.2) Chloride Level 99mEq/L (97-108) Carbon Dioxide Level 20mmol/L (18-29) Blood Urea Nitrogen 7mg/dL (6-24) Creatinine 0.49mg/dL (0.76-1.27) Estimat Glomerular Filtration Rate 186mL/min (>59) Glucose Level 107mg/dL (60-99) Calcium Level 8.4mg/dL (8.5-10.1) Microbiology Results Abscess wound cultures positive for MRSA Discharge Medications Discharge Medications Metronidazole (Flagyl) 500 Mg Tablet 500 MG PO Q12 Prescribed by: ED SPEARS MD As needed Sennosides (Senna) 8.6 Mg Tablet 17.2 MG PO BID PRN PRN For Constipation Prescribed by: ED SPEARS MD oxyCODONE (oxyCODONE) 5 Mg Tablet 7.5 MG PO Q4H PRN PRN For Moderate Pain Prescribed by: ED SPEARS MD Followup Plan Follow-up plan Wound care outpatient. To follow up at resident clinic if cannot find an earlier pcp appointment. Discharge Diet: Heart Healthy Discharge Activity: Limited until seen by PCP Follow-up with PCP in: 1 week Time spent 35 mins Ed Spears MD Feb 16, 2017 17:23
== END 2017-02-16 12:00 | disposition home or self-care (01) | DRG 872 ==
LOC: SED 20:18 → OSC 02-13 03:30
PROVIDERS: ADMIT Specialist; ATTEND Internal Medicine
PROC: 0Y900ZX Drainage of Right Buttock, Open Approach, Diagnostic (ICD-10-PCS; 2017-02-13)
PROC: 0R9 Upper Joints, Drainage (ICD-10-PCS; 2017-02-13)
PROC: 0Y910ZX Drainage of Left Buttock, Open Approach, Diagnostic (ICD-10-PCS; principal; 2017-02-13 11:00)
DX: A41.9 Sepsis, unspecified organism (principal); F11.10 Opioid abuse, uncomplicated; L02.414 Cutaneous abscess of left upper limb; L02.31 Cutaneous abscess of buttock; B95.62 Methicillin resistant Staphylococcus aureus infection as the cause of diseases classified elsewhere; F17.200 Nicotine dependence, unspecified, uncomplicated; F15.10 Other stimulant abuse, uncomplicated; Z88.0 Allergy status to penicillin